=== PATIENT | female | born 1995 | race African-American/Black ===

== ENCOUNTER 2016-04-19 17:18 | Emergency (ER) | payer OTHER ==
[~2016-04-19] VITALS: Ht 170.2 cm; Wt 79.4 kg
[~2016-04-19 17:18] MED LIST: CYCL10TA2 PO; HYDR-971 PO; IBUP-1060 PO; IBUP200T43 PO; PHEN-318 PO; SULF1TAB24 PO
[2016-04-19 17:32] VITALS: BP 137/66
[2016-04-19 18:00] LABS: BILIRUBIN,URINE NEGATIVE (NEG); GLUCOSE,URINE NEGATIVE (NEG); NITRITE,URINE POSITIVE (NEG); PROTEIN,URINE NEGATIVE (NEG-TRACE); UROBILINOGEN,URINE 0.2 mg/dL (0.2 mg/dL)
[2016-04-19 18:12] LABS: BACTERIA,URINE MANY /HPF (0-FEW); RBC,URINE 0 /HPF (0-2); SQUAMOUS EPITHELIAL CELL,UR FEW /LPF
[2016-04-19] MEDS ORDERED: CEPH-264 PO (18:27)
[2016-04-19] MEDS ORDERED: CEPHALEXIN 250 MG CAPSULE PO STA (18:27)
--- NOTE | 2016-04-19 18:29 | PHYS DOC ---
Past Medical History Past Medical History: UTI Past Surgical History: No Surgical History Alcohol Use: None Drug Use: Marijuana Adult General Chief Complaint Chief Complaint: DIZZY/LIGHT HEADED HPI HPI Patient is a 20 year old female who presents with complaint of urinary frequency and lightheadedness. The patient states that her symptoms started yesterday but worsened today. Patient states that she was at work and stated that she started to feel lightheaded at work, causing her to have to sit down. Patient states that this helped with her symptoms. The patient is concerned however that she may have urinary tract infection. The patient states that she has had increased urinary frequency over the past 2 days which is similar to what she's had in the past. Patient states that she had a urinary tract infection 2 months ago and was treated with Bactrim. Patient has had associated pelvic cramping but denies any vaginal bleeding or discharge. Patient's last menstrual period was March 14, 2016. The patient rates her discomfort currently as 6 out of 10. Patient has not taken any medications to help with symptoms at this time. Review of Systems Review of Systems Constitutional: Denies fever or chills [] Eyes: Denies change in visual acuity, redness, or eye pain [] HENT: Denies nasal congestion or sore throat [] Respiratory: Denies cough or shortness of breath [] Cardiovascular: No additional information not addressed in HPI [] GI: Denies abdominal pain, nausea, vomiting, bloody stools or diarrhea [] : Urinary frequency, pelvic pain [] Musculoskeletal: Denies back pain or joint pain [] Integument: Denies rash or skin lesions [] Neurologic: Denies headache, focal weakness or sensory changes [] Current Medications Current Medications Current Medications Medications (Trade) Dose Ordered Sig/Kimberly Start Time Stop Time Status Last Admin Dose Admin Cephalexin HCl (Keflex) 500 mg 1X STAT 04/19/16 18:27 04/19/16 18:30 DC Allergies Allergies Allergies Coded Allergies Type Severity Reaction Last Updated Verified No Known Drug Allergies 03/31/15 No Physical Exam Physical Exam Constitutional: Alert, afebrile, no acute distress. [] HENT: Normocephalic, atraumatic, bilateral external ears normal, oropharynx moist, no oral exudates, nose normal. [] Eyes: PERRLA, EOMI, conjunctiva normal, no discharge. [] Neck: Normal range of motion, no tenderness, supple, no stridor. [] Cardiovascular:Heart rate regular rhythm, no murmur [] Lungs & Thorax: Bilateral breath sounds clear to auscultation [] Abdomen: Bowel sounds normal, soft, mild suprapubic tenderness to palpation, no guarding or rebound tenderness, no masses, no pulsatile masses. [] Skin: Warm, dry, no erythema, no rash. [] Back: No tenderness, no CVA tenderness. [] Extremities: No tenderness, no cyanosis, no clubbing, ROM intact, no edema. [] Neurologic: Alert and oriented X 3, normal motor function, normal sensory function, no focal deficits noted. [] Current Patient Data Vital Signs Vital Signs Date Time Temp Pulse Resp B/P Pulse Ox O2 Delivery O2 Flow Rate FiO2 04/19/16 17:32 98.2 92 18 137/66 97 Room Air 98.2 Lab Values Laboratory Tests Test 04/19/16 17:25 Urine Collection Type Unknown Urine Color Yellow Urine Clarity Clear Urine pH 7.0 Urine Specific [place] 1.020 Urine Protein Negativemg/dL (NEG-TRACE) Urine Glucose (UA) Negativemg/dL (NEG) Urine Ketones (Stick) Negativemg/dL (NEG) Urine Blood Negative (NEG) Urine Nitrite Positive (NEG) Urine Bilirubin Negative (NEG) Urine Urobilinogen Dipstick 0.2mg/dL (0.2 mg/dL) Urine Leukocyte Esterase Small (NEG) Urine RBC 0/HPF (0-2) Urine WBC 11-20/HPF (0-4) Urine Squamous Epithelial Cells Few/LPF Urine Bacteria Many/HPF (0-FEW) EKG EKG Not performed [] Radiology/Procedures Radiology/Procedures Not performed [] Course & Med Decision Making Course & Med Decision Making Pertinent Labs and Imaging studies reviewed. (See chart for details) Patient's UA showed evidence of urinary tract infection. Patient's urine test was negative. The patient was informed of the results of her testing told the patient that she would be started on Keflex for treatment of her urinary tract infection. I ordered her first dose in the emergency department and I also completed her discharge paperwork while she is in the emergency department. I was informed by the patient's nurse, Ariana Vance, that she went to the patient's room to give her her medication and found that the patient was gone. Apparently the patient had eloped from the emergency department before receiving her paperwork. An attempt was made to contact the patient at the phone number she provided, however this was found to be a wrong number. The patient did not receive her prescription for Keflex as a result of her elopement. Dragon Disclaimer Dragon Disclaimer This electronic medical record was generated, in whole or in part, using a voice recognition dictation system. Departure Departure Impression: Primary Impression: UTI (urinary tract infection) Disposition: HOME, SELF-CARE Condition: STABLE Referrals: NO PCP (PCP) Patient Instructions: Urinary Tract Infection Additional Instructions: Follow-up with her primary doctor in 3-5 days if symptoms are not improving. Return to emergency department for any worsening symptoms. Scripts Cephalexin (Keflex)500 Mg Capsule1 Cap PO TID #21 CAP Prov:RENAE KELSEY MD 04/19/16 Problem Qualifiers Primary Impression: UTI (urinary tract infection) Urinary tract infection type: site unspecified Hematuria presence: without hematuria Qualified Code: N39.0 - Urinary tract infection, site not specified RENAE KELSEY MD Apr 19, 2016 18:29
== END 2016-04-19 18:39 | disposition home or self-care (01) ==
LOC: ER 17:18
DX: N39.0 Urinary tract infection, site not specified (principal); F12.10 Cannabis abuse, uncomplicated
CPT/HCPCS: 81001; 81025; 87086; 99284

== ENCOUNTER 2016-05-27 18:14 | Emergency (ER) | payer OTHER ==
[~2016-05-27] VITALS: Ht 170.2 cm; Wt 86.2 kg
[~2016-05-27 18:14] MED LIST changes: +CEPH-264 PO
[2016-05-27 18:35] VITALS: BP 132/63
--- NOTE | 2016-05-27 18:55 | PHYS DOC ---
Past Medical History Past Medical History: UTI Past Surgical History: No Surgical History Alcohol Use: None Drug Use: Marijuana Adult General Chief Complaint Chief Complaint: ABDOMINAL PAIN IN HPI HPI Patient is a 21 year old female who presents with complaint of left-sided leg and abdominal pain. Patient states that she suffered a fall last night while trying to hang a bed frame. Patient states that she fell onto her left leg and on the left side of her abdomen. Patient is approximately 14 weeks at this time. Patient follows a [facility] for care. Patient states she has an appointment tomorrow with her SUPERVISOR FERTILIZER, however she stated that due to the pain she wanted to make sure breathing was okay with her baby. Patient states that the pain is mild and throbbing. Patient denies any associated vaginal bleeding or abnormal discharge. Patient also denies any urinary symptoms, lightheadedness, dizziness, or nausea currently. Patient rates her pain as 3 out of 10. Patient states that the pain worsens with movement and improves with rest. Patient has not taken any medications to help with her symptoms at this time. Patient states that her main concern is that her baby is okay. Review of Systems Review of Systems Constitutional: Denies fever or chills [] Eyes: Denies change in visual acuity, redness, or eye pain [] HENT: Denies nasal congestion or sore throat [] Respiratory: Denies cough or shortness of breath [] Cardiovascular: Denies chest pain or edema [] GI: Left-sided abdominal pain, denies nausea, vomiting, bloody stools or diarrhea [] : Denies dysuria or hematuria [] Musculoskeletal: Left thigh pain, Denies back pain or joint pain [] Integument: Denies rash or skin lesions [] Neurologic: Denies headache, focal weakness or sensory changes [] Allergies Allergies Allergies Coded Allergies Type Severity Reaction Last Updated Verified No Known Drug Allergies 03/31/15 No Physical Exam Physical Exam Constitutional: Well developed, well nourished, no acute distress, non-toxic appearance. [] HENT: Normocephalic, atraumatic, bilateral external ears normal, oropharynx moist, no oral exudates, nose normal. [] Eyes: PERRLA, EOMI, conjunctiva normal, no discharge. [] Neck: Normal range of motion, no tenderness, supple, no stridor. [] Cardiovascular:Heart rate regular rhythm, no murmur [] Lungs & Thorax: Bilateral breath sounds clear to auscultation [] Abdomen: Bowel sounds normal, soft, mild left lower quadrant tenderness to palpation, no guarding or rebound tenderness present,, no masses, no pulsatile masses. [] Skin: Warm, dry, no erythema, no rash. [] Back: No tenderness, no CVA tenderness. [] Extremities: Evolving ecchymosis along left lateral thigh, No tenderness, no cyanosis, no clubbing, ROM intact, no edema. [] Neurologic: Alert and oriented X 3, normal motor function, normal sensory function, no focal deficits noted. [] Current Patient Data Vital Signs Vital Signs Date Time Temp Pulse Resp B/P Pulse Ox O2 Delivery O2 Flow Rate FiO2 05/27/16 18:35 87 18 132/63 100 Room Air EKG EKG Not performed [] Radiology/Procedures Radiology/Procedures Limited transabdominal bedside ultrasound performed and interpreted by myself: Intrauterine , frequent movements, heart rate 148 bpm, no pelvic free fluid, no adnexal masses [] Course & Med Decision Making Course & Med Decision Making Pertinent Labs and Imaging studies reviewed. (See chart for details) Patient's ultrasound at bedside is unremarkable and shows a normal healthy baby. The patient states that she has an appointment tomorrow with her SUPERVISOR FERTILIZER and she has declined pelvic exam at today's visit but states that she will have this done tomorrow. Advised patient to use Tylenol as needed for pain and return to emergency department for any worsening symptoms. Patient voiced understanding and in agreement with treatment plan. Dragon Disclaimer Dragon Disclaimer This electronic medical record was generated, in whole or in part, using a voice recognition dictation system. Departure Departure Impression: Primary Impression: Abdominal pain during Additional Impressions: Fall Thigh contusion Disposition: HOME, SELF-CARE Condition: GOOD Referrals: NO PCP (PCP) Patient Instructions: Abdominal Pain During , Contusion Additional Instructions: Follow-up with your SUPERVISOR FERTILIZER tomorrow as scheduled. Your ultrasound today showed a normal, healthy, developing baby with a heart rate of the 148 bpm. Return to the emergency department for any worsening symptoms. Problem Qualifiers Primary Impression: Abdominal pain during Trimester: second trimester Qualified Code: O26.892 - Other specified related conditions, second trimester Additional Impressions: Fall Encounter type: initial encounter Qualified Code: W19.XXXA - Unspecified fall, initial encounter Thigh contusion Encounter type: initial encounter Laterality: left Qualified Code: S70.12XA - Contusion of left thigh, initial encounter RENAE KELSEY MD May 27, 2016 18:55
== END 2016-05-27 19:05 | disposition home or self-care (01) ==
LOC: ER 18:14
DX: O9A.212 Injury, poisoning and certain other consequences of external causes complicating pregnancy, second trimester (principal); S70.12XA Contusion of left thigh, initial encounter; O26.892 Other specified pregnancy related conditions, second trimester; R10.32 Left lower quadrant pain; O99.322 Drug use complicating pregnancy, second trimester; F12.10 Cannabis abuse, uncomplicated; Z87.440 Personal history of urinary (tract) infections; Z3A.14 14 weeks gestation of pregnancy
CPT/HCPCS: 99284

== ENCOUNTER 2016-06-14 22:52 | Emergency (ER) | payer SELFPAY ==
[~2016-06-14] VITALS: Ht 170.2 cm; Wt 86.2 kg
[2016-06-14 23:08] VITALS: BP 125/57
--- NOTE | 2016-06-14 23:23 | PHYS DOC ---
Past Medical History Past Medical History: No Pertinent History, UTI Past Surgical History: No Surgical History Alcohol Use: None Drug Use: Marijuana Adult General Chief Complaint Chief Complaint: HEADACHE HPI HPI Patient is a 21 year old female approx 19wks who presents with bifrontal headache, sneezing and clear rhinorrhea. Headache is gradual in onset , starting today. She has not taken any [id number] medicines as of now. She thinks these are allergic type symptoms. She left work for these symptoms, so she came here for work note. She denies fever or chills, nausea or vomiting, vision changes, diplopia, dizziness, tinnitus, ear pain, sore throat. Review of Systems Review of Systems Constitutional: Denies fever or chills [] Eyes: Denies change in visual acuity, redness, or eye pain [] HENT: Denies nasal congestion or sore throat [] Respiratory: Denies cough or shortness of breath [] Cardiovascular: No additional information not addressed in HPI [] GI: Denies abdominal pain, nausea, vomiting, bloody stools or diarrhea [] : Denies dysuria or hematuria [] Musculoskeletal: Denies back pain or joint pain [] Integument: Denies rash or skin lesions [] Neurologic: Denies focal weakness or sensory changes [] Endocrine: Denies polyuria or polydipsia [] Current Medications Current Medications Current Medications Medications (Trade) Dose Ordered Sig/Kimberly Start Time Stop Time Status Last Admin Dose Admin Acetaminophen (Tylenol) 500 mg 1X ONCE 06/14/16 23:30 06/14/16 23:31 DC Allergies Allergies Allergies Coded Allergies Type Severity Reaction Last Updated Verified No Known Drug Allergies 03/31/15 No Physical Exam Physical Exam Constitutional: Well developed, well nourished, no acute distress, non-toxic appearance. [] HENT: Normocephalic, atraumatic, bilateral external ears normal, oropharynx moist, no oral exudates, nose with bilateral hyperemia. [] Eyes: PERRLA, EOMI, conjunctiva normal, no discharge. [] Neck: Normal range of motion, no tenderness, supple, no stridor. [] Cardiovascular:Heart rate regular rhythm [] Lungs & Thorax: Bilateral breath sounds clear to auscultation [] Abdomen: Bowel sounds normal, soft, no tenderness. [] Skin: Warm, dry, no erythema, no rash. [] Back: Normal range of motion. [] Extremities: ROM intact, no edema. [] Neurologic: Alert and oriented X 3, normal motor function, normal sensory function, no focal deficits noted, cranial nerves II through XII intact. [] Psychologic: Affect normal, judgement normal, mood normal. [] Current Patient Data Vital Signs Vital Signs Date Time Temp Pulse Resp B/P (MAP) Pulse Ox O2 Delivery O2 Flow Rate FiO2 06/14/16 23:08 98.0 97 16 96 Room Air 98.0 Course & Med Decision Making Course & Med Decision Making Discussed symptomatic management for allergies and headaches. Return precautions given. She understands and agrees with plan. Dragon Disclaimer Dragon Disclaimer This electronic medical record was generated, in whole or in part, using a voice recognition dictation system. Departure Departure Impression: Primary Impression: Headache Disposition: 01 HOME, SELF-CARE Condition: STABLE Referrals: NO PCP (PCP) Patient Instructions: Headache and Allergies Additional Instructions: Take tylenol as needed for headache. Take benadryl as needed for allergy symptoms. Take flonase for sinus congestion. Follow up with your primary care doctor. Return for any concerns. Problem Qualifiers Primary Impression: Headache Headache type: unspecified Headache chronicity pattern: episodic headache Intractability: not intractable Qualified Codes: R51 - Headache Magdalene SCOTT MD June 14, 2016 23:23
[2016-06-14] MEDS ORDERED: ACETAMINOPHEN 500 MG TABLET PO ONE (23:30)
== END 2016-06-14 23:35 | disposition home or self-care (01) ==
LOC: ER 22:52
DX: O26.892 Other specified pregnancy related conditions, second trimester (principal); R51 Headache; F12.10 Cannabis abuse, uncomplicated; Z87.440 Personal history of urinary (tract) infections; Z3A.19 19 weeks gestation of pregnancy
CPT/HCPCS: 99282

== ENCOUNTER 2016-06-25 12:48 | Emergency (ER) | payer SELFPAY ==
[2016-06-25 13:30] VITALS: BP 125/57
--- NOTE | 2016-06-25 13:35 | PHYS DOC ---
Past Medical History Past Medical History: No Pertinent History, UTI Past Surgical History: No Surgical History Alcohol Use: None Drug Use: Marijuana Adult General Chief Complaint Chief Complaint: PAIN ON URINATION [facility] HPI Patient is a 21 year old female presents emergency department stating that she is 17 weeks with a last normal menstrual period 02/26/16. She'll states that she has been having lower back pain. She states that she normally gets urinary tract infections when she is . She states these are similar to the same symptoms she's had in the past. Patient denies any vaginal discharge. She denies any abdominal cramping she does however state that she has low back pain she is taken Tylenol for the discomfort. Review of Systems Review of Systems Constitutional: Denies fever or chills [] Eyes: Denies change in visual acuity, redness, or eye pain [] HENT: Denies nasal congestion or sore throat [] Respiratory: Denies cough or shortness of breath [] Cardiovascular: No additional information not addressed in HPI [] GI: Denies abdominal pain, nausea, vomiting, bloody stools or diarrhea [] : Denies dysuria or hematuria [] Musculoskeletal: low back pain denies joint pain [] Integument: Denies rash or skin lesions [] Neurologic: Denies headache, focal weakness or sensory changes [] Endocrine: Denies polyuria or polydipsia [] Allergies Allergies Allergies Coded Allergies Type Severity Reaction Last Updated Verified No Known Drug Allergies 03/31/15 No Physical Exam Physical Exam Constitutional: Well developed, well nourished, no acute distress, non-toxic appearance. [] HENT: Normocephalic, atraumatic, bilateral external ears normal, oropharynx moist, no oral exudates, nose normal. [] Eyes: PERRLA, EOMI, conjunctiva normal, no discharge. [] Neck: Normal range of motion, no tenderness, supple, no stridor. [] Cardiovascular:Heart rate regular rhythm, no murmur [] Lungs & Thorax: Bilateral breath sounds clear to auscultation [] Skin: Warm, dry, no erythema, no rash. [] Back: No tenderness, no CVA tenderness. [] Extremities: No tenderness, no cyanosis, no clubbing, ROM intact, no edema. [] Neurologic: Alert and oriented X 3, normal motor function, normal sensory function, no focal deficits noted. [] Psychologic: Affect normal, judgement normal, mood normal. [] Current Patient Data Lab Values Laboratory Tests Test 06/25/16 13:30 Urine Color Yellow Urine Clarity Clear Urine pH 7.5 Urine Specific [place] 1.015 Urine Protein Negative mg/dL (NEG-TRACE) Urine Glucose (UA) Negative mg/dL (NEG) Urine Ketones (Stick) Negative mg/dL (NEG) Urine Blood Negative (NEG) Urine Nitrite Positive (NEG) Urine Bilirubin Negative (NEG) Urine Urobilinogen Dipstick 0.2 mg/dL (0.2 mg/dL) Urine Leukocyte Esterase Trace (NEG) Urine RBC Occ /HPF (0-2) Urine WBC 5-10 /HPF (0-4) Urine Squamous Epithelial Cells Occ /LPF Urine Bacteria Many /HPF (0-FEW) Urine Mucus Slight /LPF EKG EKG [] Radiology/Procedures Radiology/Procedures [] Course & Med Decision Making Course & Med Decision Making Pertinent Labs and Imaging studies reviewed. (See chart for details) Urine was positive for urinary tract infection. Positive for leukocyte Estrace and positive for nitrates. Patient will be placed on Macrobid and she is . We'll recommend Tylenol for pain and discomfort. Plenty fluids such as water and cranberry juice. Avoid cranberry juice cocktail, carbonated beverages, citrus fruits of alcohol. Also recommended patient to stop smoking. Patient will be discharged home in stable condition signs symptoms to return back to emergency department as been provided. [] Dragon Disclaimer Dragon Disclaimer This electronic medical record was generated, in whole or in part, using a voice recognition dictation system. Departure Departure Impression: Primary Impression: Urinary tract infection during Disposition: 01 HOME, SELF-CARE Condition: STABLE Referrals: NO PCP (PCP) Patient Instructions: Urinary Tract Infection, [id number] Additional Instructions: You are being treated for urinary tract infection. Drink plenty of fluids such as water and cranberry juice. Avoid cranberry juice cocktail carbonate beverages, citrus fruits and alcohol seizure considered irritants to the bladder. Stop smoking. Medications as prescribed. Tylenol for pain and discomfort. Follow-up with your RETURNED [employer] INSPECTOR in the next 7-10 days. Return back to emergency prior signs symptoms of become worse. Scripts Nitrofurantoin Monohyd/M-Cryst (MACROBID 100 MG CAPSULE) 100 Mg Capsule 1 CAP PO BID, #14 CAP Prov: DOUGLAS OSEI APRN 06/25/16 DOUGLAS OSEI APRN June 25, 2016 13:35
[2016-06-25 13:49] LABS: BILIRUBIN,URINE NEGATIVE (NEG); GLUCOSE,URINE NEGATIVE (NEG); NITRITE,URINE POSITIVE (NEG); PH,URINE 7.5; PROTEIN,URINE NEGATIVE (NEG-TRACE); UROBILINOGEN,URINE 0.2 mg/dL (0.2 mg/dL)
[2016-06-25 14:03] LABS: RBC,URINE OCC /HPF (0-2)
[2016-06-25 14:04] LABS: BACTERIA,URINE MANY /HPF (0-FEW); SQUAMOUS EPITHELIAL CELL,UR OCC /LPF
[2016-06-25] MEDS ORDERED: NITR100C62 PO (14:08)
== END 2016-06-25 14:14 | disposition home or self-care (01) ==
LOC: ER 13:09
DX: Z33.1 Pregnant state, incidental (principal); N39.0 Urinary tract infection, site not specified; F12.10 Cannabis abuse, uncomplicated
CPT/HCPCS: 81001; 87086; 87186; 99284

== ENCOUNTER 2016-09-18 07:26 | Observation (INO) | payer OTHER ==
[~2016-09-18 07:26] MED LIST changes: +NITR100C62 PO
[2016-09-18 08:16] LABS: BILIRUBIN,URINE NEGATIVE (NEG); GLUCOSE,URINE NEGATIVE (NEG); NITRITE,URINE NEGATIVE (NEG); PH,URINE 6.5; PROTEIN,URINE NEGATIVE (NEG-TRACE); UROBILINOGEN,URINE 0.2 mg/dL (0.2 mg/dL)
[2016-09-18] MEDS ORDERED: IV RINGERS,LACTATED 1000ML 1,000 ML IV SCH (08:30)
== END 2016-09-18 08:55 | disposition home or self-care (01) ==
LOC: 3 SO LND 07:26
PROVIDERS: ADMIT Obstetrics & Gynecology; ATTEND Obstetrics & Gynecology
DX: O26.893 Other specified pregnancy related conditions, third trimester (principal); R10.2 Pelvic and perineal pain; Z3A.31 31 weeks gestation of pregnancy
CPT/HCPCS: 81003; G0378; G0379

== ENCOUNTER 2016-10-16 22:03 | Observation (INO) | payer OTHER ==
[2016-10-16 23:05] LABS: BILIRUBIN,URINE NEGATIVE (NEG); GLUCOSE,URINE 100 mg/dL (NEG); NITRITE,URINE NEGATIVE (NEG); PH,URINE 6.5; PROTEIN,URINE NEGATIVE (NEG-TRACE); UROBILINOGEN,URINE 0.2 mg/dL (0.2 mg/dL)
[2016-10-16 23:10] LABS: BARBITURATES NEG (NEG); BENZODIAZEPINES NEG (NEG); CANNABINOIDS NEG (NEG); COCAINE NEG (NEG); METHADONE NEG (NEG); OPIATES NEG (NEG); PHENCYCLIDINE NEG (NEG)
[2016-10-16 23:17] LABS: BACTERIA,URINE FEW /HPF (0-FEW); RBC,URINE OCC /HPF (0-2); SQUAMOUS EPITHELIAL CELL,UR OCC /LPF; TRICHOMONAS,URINE PRESENT
[2016-10-17] MEDS ORDERED: metroNIDAZOLE 500 MG TABLET PO ONE
[2016-10-17] MEDS ORDERED: ACETAMINOPHEN 500 MG TABLET PO ONE
== END 2016-10-17 02:15 | disposition home or self-care (01) ==
LOC: 3 SO LND 22:03
PROVIDERS: ADMIT Obstetrics & Gynecology; ATTEND Obstetrics & Gynecology
DX: O26.893 Other specified pregnancy related conditions, third trimester (principal); M54.9 Dorsalgia, unspecified; V89.9XXA Person injured in unspecified vehicle accident, initial encounter; Y93.89 Activity, other specified; Y92.89 Other specified places as the place of occurrence of the external cause; Y99.8 Other external cause status; Z3A.35 35 weeks gestation of pregnancy
CPT/HCPCS: 80307; 81001; G0378; G0379; G0479

== ENCOUNTER 2016-11-16 07:20 | Observation (INO) | payer OTHER | END 2016-11-16 11:13 | disposition home or self-care (01) | LOC: 3 SO LND 07:20 | PROVIDERS: ADMIT Obstetrics & Gynecology; ATTEND Obstetrics & Gynecology | DX: O62.9 Abnormality of forces of labor, unspecified (principal); Z3A.39 39 weeks gestation of pregnancy | CPT/HCPCS: G0378; G0379 ==

== ENCOUNTER 2016-11-20 22:23 | Inpatient (IN) | payer OTHER ==
[~2016-11-20] VITALS: Ht 167.6 cm; Wt 103.9 kg
[2016-11-20] MEDS ORDERED: IV RINGERS,LACTATED 1000ML 1,000 ML IV SCH (22:28)
[2016-11-20] MEDS ORDERED: ACETAMINOPHEN 325 MG TABLET. PO PRN (22:30)
[2016-11-20] MEDS ORDERED: ONDANSETRON PF 4 MG/2 ML VIAL. IV PRN (22:30)
[2016-11-20] MEDS ORDERED: LIDOCAINE 1% PF 30 ML VIAL. INJ PRN (22:30)
[2016-11-20] MEDS ORDERED: IBUPROFEN 800 MG TABLET. PO PRN (22:30)
[2016-11-20] MEDS ORDERED: OXYTOCIN 30 UNIT/500 ML PREMIX 500 ML IV PRN ×2 (22:30)
[2016-11-20] MEDS ORDERED: 0.9 % SODIUM CHLORIDE 10 ML DISP.SYRIN. IV PRN (22:30)
[2016-11-20] MEDS ORDERED: fentaNYL PF VIAL 100 MCG/2 ML VIAL IV PRN ×2 (22:30)
[2016-11-20] MEDS ORDERED: TERBUTALINE 1 MG/ML VIAL. SQ PRN (22:30)
[2016-11-20] MEDS ORDERED: PENICILLIN G K 5,000,000 UNIT in IV NORMAL SALINE 100ML 100 ML IV ONE (23:00)
[2016-11-20 23:12] LABS: BILIRUBIN,URINE NEGATIVE (NEG); GLUCOSE,URINE 100 mg/dL (NEG); NITRITE,URINE NEGATIVE (NEG); PROTEIN,URINE 30 mg/dL (NEG-TRACE); UROBILINOGEN,URINE 0.2 mg/dL (0.2 mg/dL)
--- NOTE | 2016-11-20 23:15 | PDOC1 ---
OB - History Hx of Present Care: Limited Care Ultrasounds: Normal mid trimester US Obstetrical Complications: None Medical Complications: None Past Family/Social History * Past Medical, Surgical, Family and Obstetric Histories reviewed from chart. Blood Type: O- Rubella: Immune RPR/VDRL: Negative GBS Status: Positive HBsAG: Negative OB - Chief Complaint & HPI Date of Admission: Date of Admission: Nov 20, 2016 at 22:23 Chief Complaint/History : 3 Para: 2 EGA: 39 Reason for admission: active labor Admission Nurse Assessment Rev: Yes Problems: OB - Admission Exam Physical Exam HEENT: Normal Heart: Regular Rate Lungs: Clear Abdomen: Gravid, Non tender, Soft Extremities: Edema Reflexes: Normal Cervical Dilatation: 8cm Effacement: 100% Station: -1 Membranes: Intact Heart Rate: Normal Accelerations: Accelerations Present Decelerations: No decelerations Contractions on Admission: < 5 Minutes Apart Intensity: Firm Text A: 39 wks IUP Active labor GBS positive P: Admit for labor management. Start Pen G prophylaxis. AIDA MONROE Jr, MD Nov 20, 2016 23:15
[2016-11-20 23:18] LABS: BARBITURATES NEG (NEG); BENZODIAZEPINES NEG (NEG); CANNABINOIDS NEG (NEG); COCAINE NEG (NEG); METHADONE NEG (NEG); OPIATES NEG (NEG); PHENCYCLIDINE NEG (NEG)
[2016-11-20 23:19] LABS: BASO # 0.1 x10^3/uL (0.0-0.2); BASO % 0 % (0-3); EOS % 1 % (0-3); HEMATOCRIT 35.9 % (36.0-47.0); HEMOGLOBIN 12.2 g/dL (12.0-15.5); LYMPH % 13 % (24-48); MEAN CORPUSCULAR HEMOGLOBIN 29 pg (25-35); MEAN CORPUSCULAR HGB CONC 34 g/dL (31-37); MEAN CORPUSCULAR VOLUME 85 fL (79-100); MONO % 7 % (0-9); NEUT % 78 % (31-73); PLATELET COUNT 146 x10^3/uL (140-400); RED CELL DISTRIBUTION WIDTH 14.3 % (11.5-14.5)
[2016-11-20 23:23] LABS: BACTERIA,URINE FEW /HPF (0-FEW); RBC,URINE 0 /HPF (0-2); SQUAMOUS EPITHELIAL CELL,UR FEW /LPF
--- NOTE | 2016-11-20 23:54 | PDOC ---
VAGINAL DELIVERY DATE DATE: 11/20/16 TIME: 23:53 : 3 Para: 3 EGA: 39 VAGINAL DELIVERY: VTX VACCUM ASSISTED: No PLACENTA: Spontaneous 8/9 SEX: Male WEIGHT Weight [ 3390 gm] Nuchal Cord: No Amniotic Fluid: Clear PAIN: Local EPISIOTOMY: No EXTENSION: No EBL 300 ml COMPLICATIONS none CONDITION pt. stable Signs of Intrauterine Infectio: None Shoulder Dystocia: No Problems: AIDA MONROE Jr, MD Nov 20, 2016 23:54
[2016-11-21] MEDS ORDERED: ACETAMINOPHEN 325 MG TABLET. PO PRN
[2016-11-21] MEDS ORDERED: 0.9 % SODIUM CHLORIDE 10 ML DISP.SYRIN. IV PRN
[2016-11-21] MEDS ORDERED: MMR per PROTOCOL. MC PRN
[2016-11-21] MEDS ORDERED: HYDROCORTISONE 1% TOPICAL OINTMENT 30GM TUBE. TP PRN
[2016-11-21] MEDS ORDERED: oxyCODONE/APAP 5/325 1 TAB TABLET PO PRN
[2016-11-21] MEDS ORDERED: DOCUSATE SODIUM 100 MG CAPSULE. PO PRN
[2016-11-21] MEDS ORDERED: OXYTOCIN 30 UNIT/500 ML PREMIX 500 ML IV PRN
[2016-11-21] MEDS ORDERED: SIMETHICONE 80 MG TAB.CHEW PO PRN
[2016-11-21] MEDS ORDERED: ZOLPIDEM 5 MG TABLET. PO PRN
[2016-11-21] MEDS ORDERED: diphenhydrAMINE HCL 25 MG CAPSULE PO PRN
[2016-11-21] MEDS ORDERED: IBUPROFEN 800 MG TABLET. PO PRN
[2016-11-21] MEDS ORDERED: PHENYLEPH/MINERAL OIL/PETROLAT RECTAL OINTMENT 28GM TUBE. RC PRN
[2016-11-21] MEDS ORDERED: BENZOCAINE 20% TOPICAL AEROSOL SPRAY 57GM CAN. TP PRN
[2016-11-21] MEDS ORDERED: MAGNESIUM HYDROXIDE 2,400 MG/30 ML ORAL.SUSP. PO PRN
[2016-11-21] MEDS ORDERED: MAG HYDROX/ALUMINUM HYD/SIMETH 30 ML ORAL.SUSP PO PRN
[2016-11-21 00:33] VITALS: BP 125/73
[2016-11-21] MEDS ORDERED: PENICILLIN G K 2,500,000 UNIT in IV NORMAL SALINE 50ML 50 ML IV SCH (03:00)
[2016-11-21 03:05] VITALS: BP 120/61
[2016-11-21 04:20] VITALS: BP 96/54
[2016-11-21 05:10] LABS: BASO # 0.2 x10^3/uL (0.0-0.2); BASO % 1 % (0-3); EOS % 1 % (0-3); HEMATOCRIT 32.9 % (36.0-47.0); HEMOGLOBIN 11.1 g/dL (12.0-15.5); LYMPH # 1.9 x10^3/uL (1.0-4.8); LYMPH % 11 % (24-48); MEAN CORPUSCULAR HEMOGLOBIN 29 pg (25-35); MEAN CORPUSCULAR HGB CONC 34 g/dL (31-37); MEAN CORPUSCULAR VOLUME 85 fL (79-100); MONO % 7 % (0-9); NEUT % 80 % (31-73); PLATELET COUNT 150 x10^3/uL (140-400); RED BLOOD COUNT 3.87 x10^6/uL (3.50-5.40); WHITE BLOOD COUNT 18.5 x10^3/uL (4.0-11.0)
[2016-11-21] MEDS ORDERED: FERROUS SULFATE 325 MG TABLET. PO SCH (08:00)
[2016-11-21 09:32] LABS: % EOS 1 % (0-5)
[2016-11-21 09:33] LABS: PLT ESTIMATE ADEQUATE (ADEQUATE)
[2016-11-21 11:00] VITALS: BP 112/66
--- NOTE | 2016-11-21 12:30 | PDOC ---
OB Progress Note Date of Service 11/21/16 Time of Evaluation 1230 Notes PT. feeling well. Pain controlled. Breast feeding. Lochia minimal. Lab Laboratory Tests Test 11/20/16 23:00 11/20/16 23:04 11/21/16 04:55 Urine Collection Type Unknown Urine Color Yellow Urine Clarity Clear Urine pH 7.0 Urine Specific [place] 1.025 Urine Protein 30 mg/dL (NEG-TRACE) Urine Glucose (UA) 100 mg/dL (NEG) Urine Ketones (Stick) Negative mg/dL (NEG) Urine Blood Trace (NEG) Urine Nitrite Negative (NEG) Urine Bilirubin Negative (NEG) Urine Urobilinogen Dipstick 0.2 mg/dL (0.2 mg/dL) Urine Leukocyte Esterase Moderate (NEG) Urine RBC 0 /HPF (0-2) Urine WBC 1-4 /HPF (0-4) Urine Squamous Epithelial Cells Few /LPF Urine Bacteria Few /HPF (0-FEW) Urine Mucus Slight /LPF Urine Opiates Screen Neg (NEG) Urine Methadone Screen Neg (NEG) Urine Barbiturates Neg (NEG) Urine Phencyclidine Screen Neg (NEG) Urine Amphetamine/Methamphetamine Neg (NEG) Urine Benzodiazepines Screen Neg (NEG) Urine Cocaine Screen Neg (NEG) Urine Cannabinoids Screen Neg (NEG) Urine Ethyl Alcohol Neg (NEG) White Blood Count 15.0 x10^3/uL (4.0-11.0) 18.5 x10^3/uL (4.0-11.0) Red Blood Count 4.20 x10^6/uL (3.50-5.40) 3.87 x10^6/uL (3.50-5.40) Hemoglobin 12.2 g/dL (12.0-15.5) 11.1 g/dL (12.0-15.5) Hematocrit 35.9 % (36.0-47.0) 32.9 % (36.0-47.0) Mean Corpuscular Volume 85 fL (79-100) 85 fL (79-100) Mean Corpuscular Hemoglobin 29 pg (25-35) 29 pg (25-35) Mean Corpuscular Hemoglobin Concent 34 g/dL (31-37) 34 g/dL (31-37) Red Cell Distribution Width 14.3 % (11.5-14.5) 14.0 % (11.5-14.5) Platelet Count 146 x10^3/uL (140-400) 150 x10^3/uL (140-400) Neutrophils (%) (Auto) 78 % (31-73) 80 % (31-73) Lymphocytes (%) (Auto) 13 % (24-48) 11 % (24-48) Monocytes (%) (Auto) 7 % (0-9) 7 % (0-9) Eosinophils (%) (Auto) 1 % (0-3) 1 % (0-3) Basophils (%) (Auto) 0 % (0-3) 1 % (0-3) Neutrophils # (Auto) 11.7 x10^3uL (1.8-7.7) 14.8 x10^3uL (1.8-7.7) Lymphocytes # (Auto) 2.0 x10^3/uL (1.0-4.8) 1.9 x10^3/uL (1.0-4.8) Monocytes # (Auto) 1.1 x10^3/uL (0.0-1.1) 1.3 x10^3/uL (0.0-1.1) Eosinophils # (Auto) 0.2 x10^3/uL (0.0-0.7) 0.2 x10^3/uL (0.0-0.7) Basophils # (Auto) 0.1 x10^3/uL (0.0-0.2) 0.2 x10^3/uL (0.0-0.2) Segmented Neutrophils % 89 % (35-66) Lymphocytes % 8 % (24-48) Monocytes % 2 % (0-10) Eosinophils % 1 % (0-5) Platelet Estimate Adequate (ADEQUATE) Laboratory Tests Test 11/20/16 23:00 11/20/16 23:04 11/21/16 04:55 Urine Collection Type Unknown Urine Color Yellow Urine Clarity Clear Urine pH 7.0 Urine Specific [place] 1.025 Urine Protein 30 mg/dL (NEG-TRACE) Urine Glucose (UA) 100 mg/dL (NEG) Urine Ketones (Stick) Negative mg/dL (NEG) Urine Blood Trace (NEG) Urine Nitrite Negative (NEG) Urine Bilirubin Negative (NEG) Urine Urobilinogen Dipstick 0.2 mg/dL (0.2 mg/dL) Urine Leukocyte Esterase Moderate (NEG) Urine RBC 0 /HPF (0-2) Urine WBC 1-4 /HPF (0-4) Urine Squamous Epithelial Cells Few /LPF Urine Bacteria Few /HPF (0-FEW) Urine Mucus Slight /LPF Urine Opiates Screen Neg (NEG) Urine Methadone Screen Neg (NEG) Urine Barbiturates Neg (NEG) Urine Phencyclidine Screen Neg (NEG) Urine Amphetamine/Methamphetamine Neg (NEG) Urine Benzodiazepines Screen Neg (NEG) Urine Cocaine Screen Neg (NEG) Urine Cannabinoids Screen Neg (NEG) Urine Ethyl Alcohol Neg (NEG) White Blood Count 15.0 x10^3/uL (4.0-11.0) 18.5 x10^3/uL (4.0-11.0) Red Blood Count 4.20 x10^6/uL (3.50-5.40) 3.87 x10^6/uL (3.50-5.40) Hemoglobin 12.2 g/dL (12.0-15.5) 11.1 g/dL (12.0-15.5) Hematocrit 35.9 % (36.0-47.0) 32.9 % (36.0-47.0) Mean Corpuscular Volume 85 fL (79-100) 85 fL (79-100) Mean Corpuscular Hemoglobin 29 pg (25-35) 29 pg (25-35) Mean Corpuscular Hemoglobin Concent 34 g/dL (31-37) 34 g/dL (31-37) Red Cell Distribution Width 14.3 % (11.5-14.5) 14.0 % (11.5-14.5) Platelet Count 146 x10^3/uL (140-400) 150 x10^3/uL (140-400) Neutrophils (%) (Auto) 78 % (31-73) 80 % (31-73) Lymphocytes (%) (Auto) 13 % (24-48) 11 % (24-48) Monocytes (%) (Auto) 7 % (0-9) 7 % (0-9) Eosinophils (%) (Auto) 1 % (0-3) 1 % (0-3) Basophils (%) (Auto) 0 % (0-3) 1 % (0-3) Neutrophils # (Auto) 11.7 x10^3uL (1.8-7.7) 14.8 x10^3uL (1.8-7.7) Lymphocytes # (Auto) 2.0 x10^3/uL (1.0-4.8) 1.9 x10^3/uL (1.0-4.8) Monocytes # (Auto) 1.1 x10^3/uL (0.0-1.1) 1.3 x10^3/uL (0.0-1.1) Eosinophils # (Auto) 0.2 x10^3/uL (0.0-0.7) 0.2 x10^3/uL (0.0-0.7) Basophils # (Auto) 0.1 x10^3/uL (0.0-0.2) 0.2 x10^3/uL (0.0-0.2) Segmented Neutrophils % 89 % (35-66) Lymphocytes % 8 % (24-48) Monocytes % 2 % (0-10) Eosinophils % 1 % (0-5) Platelet Estimate Adequate (ADEQUATE) Medications Current Medications Sodium Chloride (Normal Saline Flush) 3 ml QSHIFT PRN IV AFTER MEDS AND BLOOD DRAWS; Start 11/20/16 at 22:30; Stop 11/21/16 at 07:47; Status DC Ringer's Solution 1,000 ml @ 125 mls/hr Q8H IV Last administered on 23:17; Start 11/20/16 at 22:28; Stop 11/21/16 at 07:47; Status DC Fentanyl Citrate (Fentanyl 2ml Vial) 50 mcg PRN Q30MIN PRN IV Mild to moderate pain; Start 11/20/16 at 22:30; Stop 11/21/16 at 07:47; Status DC Fentanyl Citrate (Fentanyl 2ml Vial) 100 mcg PRN Q30MIN PRN IV Severe pain Last administered on 11/20/16 23:17; Start 11/20/16 at 22:30; Stop 11/21/16 at 07:47; Status DC Acetaminophen (Tylenol) 650 mg PRN Q6HRS PRN PO MILD PAIN / TEMP; Start at 22:30 Ondansetron HCl (Zofran) 4 mg PRN Q4HRS PRN IV NAUSEA/VOMITING; Start at 22:30; Stop 11/21/16 at 07:47; Status DC Terbutaline Sulfate (Brethine) 0.25 mg 1X PRN PRN SQ SEE COMMENTS; Start 11/20 at 22:30; Stop 11/21/16 at 07:47; Status DC Lidocaine HCl 30 ml 1X PRN PRN INJ SEE COMMENTS; Start 11/20/16 at 22:30; Stop 11/21/16 at 07:47; Status DC Oxytocin/Sodium Chloride 500 ml @ 0 mls/hr CONT PRN IV SEE I/O RECORD; Start 11/20/16 at 22:30; Stop 11/21/16 at 04:01; Status DC Oxytocin/Sodium Chloride 500 ml @ 0 mls/hr CONT PRN PRN IV Post delivery bleeding Last administered on 11/20/16 23:18; Start 11/20/16 at 22:30; Stop 11/21/16 at 04:01; Status DC Ibuprofen (Motrin) 800 mg PRN Q6HRS PRN PO PAIN Last administered on 02:21; Start 11/20/16 at 22:30 Penicillin G Potassium [id number] unit/Sodium Chloride 100 ml @ 100 mls/hr 1X ONCE IV Last administered on 11/20/16 23:18; Start 11/20/16 at 23:00; Stop 11/21/16 at 07:47; Status DC Penicillin G Potassium [id number] unit/Sodium Chloride 50 ml @ 100 mls/hr Q4H IV ; Start 11/21/16 at 03:00; Stop 11/21/16 at 04:02; Status DC Sodium Chloride (Normal Saline Flush) 10 ml QSHIFT PRN IV AFTER MEDS AND BLOOD DRAWS; Start 11/21/16 at 00:00; Stop 11/21/16 at 07:47; Status DC Oxytocin/Sodium Chloride 500 ml @ 62.5 mls/hr CONT PRN IV SEE I/O RECORD; Start 11/21/16 at 00:00; Stop 11/21/16 at 07:47; Status DC Acetaminophen (Tylenol) 650 mg PRN Q6HRS PRN PO MILD PAIN / TEMP; Start at 00:00 Ibuprofen (Motrin) 800 mg PRN Q8HRS PRN PO INFLAMMATION/PAIN PREVENTION; Start 11/21/16 at 00:00 Docusate Sodium (Colace) 100 mg PRN BID PRN PO CONSTIPATION; Start 11/21/16 at 00:00 Magnesium Hydroxide (Milk Of Magnesia) 2,400 mg PRN DAILY PRN PO CONSTIPATION; Start 11/21/16 at 00:00 Al Hydroxide/Mg Hydroxide (Mylanta Plus Xs) 30 ml PRN Q4HRS PRN PO HEARTBURN / GAS; Start 11/21/16 at 00:00 Simethicone (Gas-X) 80 mg PRN AFTMEALHC PRN PO GAS / BLOATING; Start 11/21/16 at 00:00 Diphenhydramine HCl (Benadryl) 25 mg PRN Q6HRS PRN PO ITCHING; Start 11/21/16 at 00:00 Benzocaine (Americaine) 1 spray PRN QID PRN TP TOPICAL PAIN Last administered on 11/21/16t 02:21; Start 11/21/16 at 00:00 Phenyleph/Shark Oil/Min Oil/Petrol (Preparation H) 1 marcella PRN QID PRN RC RECTAL PAIN; Start 11/21/16 at 00:00 Hydrocortisone (Cortaid) 1 marcella PRN QID PRN TP PERINEAL PAIN; Start 11/21/16 at 00:00 Ferrous Sulfate (Feosol) 325 mg BIDWMEALS PO ; Start 11/21/16 at 08:00; Stop 11/21/16 at 08:00; Status DC Zolpidem Tartrate (Ambien) 5 mg PRN QHS PRN PO INSOMNIA, MAY REPEAT X1; Start 11/21/16 at 00:00 Info (Do NOT chart on this placeholder) 1 ea 1X PRN PRN MC SEE COMMENTS; Start 11/21/16 at 00:00; Stop 11/21/16 at 07:47; Status DC Info (Do NOT chart on this placeholder) 1 ea 1X PRN PRN MC SEE COMMENTS; Start 11/21/16 at 00:00; Stop 11/21/16 at 07:47; Status DC Oxycodone/ Acetaminophen (Percocet 5/325) 2 tab PRN Q4HRS PRN PO MODERATE PAIN , SEVERE PAIN; Start 11/21/16 at 00:00 Active Scripts Active Macrobid 100 Mg Capsule (Nitrofurantoin Monohyd/M-Cryst) 100 Mg Capsule 1 Cap PO BID Keflex (Cephalexin) 500 Mg Capsule 1 Cap PO TID [place] 5-325 Tablet (Acetaminophen/Hydrocodone Bitart) 1 Each Tablet 1 Tab PO PRN Q6HRS PRN Pyridium (Phenazopyridine Hcl) 200 Mg Tablet 200 Mg PO TID Bactrim Ds Tablet (Sulfamethoxazole/Trimethoprim) 1 Each Tablet 1 Each PO BID Cyclobenzaprine Hcl 10 Mg Tablet 10 Mg PO TID PRN Motrin Ib (Ibuprofen) 200 Mg Tablet 800 Mg PO Q6H PRN Ibuprofen 800 Mg Tablet 800 Mg PO PRN Q8HRS PRN Exam Abd: soft, non tender, fundus firm Assessment PPD#1 s/p Plan of Care: Continue current Tx, AIDA Triana Jr, MD Nov 21, 2016 12:30
[2016-11-21 15:00] VITALS: BP 126/74
[2016-11-21 23:04] VITALS: BP 114/75
[2016-11-22 00:10] LABS: RPR REFLEX Non Reactive (Non Reactive)
[2016-11-22 06:05] VITALS: BP 122/84
[2016-11-22 11:20] VITALS: BP 124/74
[2016-11-22 17:00] VITALS: BP 126/74
--- NOTE | 2016-11-22 17:28 | PDOC ---
OB Progress Note Date of Service 11/22/16 Time of Evaluation 1725 Notes Pt. feeling well. No complaints. Lab Laboratory Tests Test 11/20/16 23:00 11/20/16 23:04 11/21/16 04:55 Urine Collection Type Unknown Urine Color Yellow Urine Clarity Clear Urine pH 7.0 Urine Specific [place] 1.025 Urine Protein 30 mg/dL (NEG-TRACE) Urine Glucose (UA) 100 mg/dL (NEG) Urine Ketones (Stick) Negative mg/dL (NEG) Urine Blood Trace (NEG) Urine Nitrite Negative (NEG) Urine Bilirubin Negative (NEG) Urine Urobilinogen Dipstick 0.2 mg/dL (0.2 mg/dL) Urine Leukocyte Esterase Moderate (NEG) Urine RBC 0 /HPF (0-2) Urine WBC 1-4 /HPF (0-4) Urine Squamous Epithelial Cells Few /LPF Urine Bacteria Few /HPF (0-FEW) Urine Mucus Slight /LPF Urine Opiates Screen Neg (NEG) Urine Methadone Screen Neg (NEG) Urine Barbiturates Neg (NEG) Urine Phencyclidine Screen Neg (NEG) Urine Amphetamine/Methamphetamine Neg (NEG) Urine Benzodiazepines Screen Neg (NEG) Urine Cocaine Screen Neg (NEG) Urine Cannabinoids Screen Neg (NEG) Urine Ethyl Alcohol Neg (NEG) White Blood Count 15.0 x10^3/uL (4.0-11.0) 18.5 x10^3/uL (4.0-11.0) Red Blood Count 4.20 x10^6/uL (3.50-5.40) 3.87 x10^6/uL (3.50-5.40) Hemoglobin 12.2 g/dL (12.0-15.5) 11.1 g/dL (12.0-15.5) Hematocrit 35.9 % (36.0-47.0) 32.9 % (36.0-47.0) Mean Corpuscular Volume 85 fL (79-100) 85 fL (79-100) Mean Corpuscular Hemoglobin 29 pg (25-35) 29 pg (25-35) Mean Corpuscular Hemoglobin Concent 34 g/dL (31-37) 34 g/dL (31-37) Red Cell Distribution Width 14.3 % (11.5-14.5) 14.0 % (11.5-14.5) Platelet Count 146 x10^3/uL (140-400) 150 x10^3/uL (140-400) Neutrophils (%) (Auto) 78 % (31-73) 80 % (31-73) Lymphocytes (%) (Auto) 13 % (24-48) 11 % (24-48) Monocytes (%) (Auto) 7 % (0-9) 7 % (0-9) Eosinophils (%) (Auto) 1 % (0-3) 1 % (0-3) Basophils (%) (Auto) 0 % (0-3) 1 % (0-3) Neutrophils # (Auto) 11.7 x10^3uL (1.8-7.7) 14.8 x10^3uL (1.8-7.7) Lymphocytes # (Auto) 2.0 x10^3/uL (1.0-4.8) 1.9 x10^3/uL (1.0-4.8) Monocytes # (Auto) 1.1 x10^3/uL (0.0-1.1) 1.3 x10^3/uL (0.0-1.1) Eosinophils # (Auto) 0.2 x10^3/uL (0.0-0.7) 0.2 x10^3/uL (0.0-0.7) Basophils # (Auto) 0.1 x10^3/uL (0.0-0.2) 0.2 x10^3/uL (0.0-0.2) RPR Titer Additional Testing Non reactive (Non Reactive) Segmented Neutrophils % 89 % (35-66) Lymphocytes % 8 % (24-48) Monocytes % 2 % (0-10) Eosinophils % 1 % (0-5) Platelet Estimate Adequate (ADEQUATE) Medications Current Medications Sodium Chloride (Normal Saline Flush) 3 ml QSHIFT PRN IV AFTER MEDS AND BLOOD DRAWS; Start 11/20/16 at 22:30; Stop 11/21/16 at 07:47; Status DC Ringer's Solution 1,000 ml @ 125 mls/hr Q8H IV Last administered on t 23:17; Start 11/20/16 at 22:28; Stop 11/21/16 at 07:47; Status DC Fentanyl Citrate (Fentanyl 2ml Vial) 50 mcg PRN Q30MIN PRN IV Mild to moderate pain; Start 11/20/16 at 22:30; Stop 11/21/16 at 07:47; Status DC Fentanyl Citrate (Fentanyl 2ml Vial) 100 mcg PRN Q30MIN PRN IV Severe pain Last administered on 11/20/16 23:17; Start 11/20/16 at 22:30; Stop 11/21/16 at 07:47; Status DC Acetaminophen (Tylenol) 650 mg PRN Q6HRS PRN PO MILD PAIN / TEMP; Start at 22:30 Ondansetron HCl (Zofran) 4 mg PRN Q4HRS PRN IV NAUSEA/VOMITING; Start at 22:30; Stop 11/21/16 at 07:47; Status DC Terbutaline Sulfate (Brethine) 0.25 mg 1X PRN PRN SQ SEE COMMENTS; Start 11/20 at 22:30; Stop 11/21/16 at 07:47; Status DC Lidocaine HCl 30 ml 1X PRN PRN INJ SEE COMMENTS; Start 11/20/16 at 22:30; Stop 11/21/16 at 07:47; Status DC Oxytocin/Sodium Chloride 500 ml @ 0 mls/hr CONT PRN IV SEE I/O RECORD; Start 11/20/16 at 22:30; Stop 11/21/16 at 04:01; Status DC Oxytocin/Sodium Chloride 500 ml @ 0 mls/hr CONT PRN PRN IV Post delivery bleeding Last administered on 11/20/16 23:18; Start 11/20/16 at 22:30; Stop 11/21/16 at 04:01; Status DC Ibuprofen (Motrin) 800 mg PRN Q6HRS PRN PO PAIN Last administered on 02:21; Start 11/20/16 at 22:30 Penicillin G Potassium [id number] unit/Sodium Chloride 100 ml @ 100 mls/hr 1X ONCE IV Last administered on 11/20/16 23:18; Start 11/20/16 at 23:00; Stop 11/21/16 at 07:47; Status DC Penicillin G Potassium [id number] unit/Sodium Chloride 50 ml @ 100 mls/hr Q4H IV ; Start 11/21/16 at 03:00; Stop 11/21/16 at 04:02; Status DC Sodium Chloride (Normal Saline Flush) 10 ml QSHIFT PRN IV AFTER MEDS AND BLOOD DRAWS; Start 11/21/16 at 00:00; Stop 11/21/16 at 07:47; Status DC Oxytocin/Sodium Chloride 500 ml @ 62.5 mls/hr CONT PRN IV SEE I/O RECORD; Start 11/21/16 at 00:00; Stop 11/21/16 at 07:47; Status DC Acetaminophen (Tylenol) 650 mg PRN Q6HRS PRN PO MILD PAIN / TEMP; Start at 00:00 Ibuprofen (Motrin) 800 mg PRN Q8HRS PRN PO INFLAMMATION/PAIN PREVENTION; Start 11/21/16 at 00:00 Docusate Sodium (Colace) 100 mg PRN BID PRN PO CONSTIPATION; Start 11/21/16 at 00:00 Magnesium Hydroxide (Milk Of Magnesia) 2,400 mg PRN DAILY PRN PO CONSTIPATION; Start 11/21/16 at 00:00 Al Hydroxide/Mg Hydroxide (Mylanta Plus Xs) 30 ml PRN Q4HRS PRN PO HEARTBURN / GAS; Start 11/21/16 at 00:00 Simethicone (Gas-X) 80 mg PRN AFTMEALHC PRN PO GAS / BLOATING; Start 11/21/16 at 00:00 Diphenhydramine HCl (Benadryl) 25 mg PRN Q6HRS PRN PO ITCHING; Start 11/21/16 at 00:00 Benzocaine (Americaine) 1 spray PRN QID PRN TP TOPICAL PAIN Last administered on 11/21/16t 02:21; Start 11/21/16 at 00:00 Phenyleph/Shark Oil/Min Oil/Petrol (Preparation H) 1 marcella PRN QID PRN RC RECTAL PAIN; Start 11/21/16 at 00:00 Hydrocortisone (Cortaid) 1 marcella PRN QID PRN TP PERINEAL PAIN; Start 11/21/16 at 00:00 Ferrous Sulfate (Feosol) 325 mg BIDWMEALS PO ; Start 11/21/16 at 08:00; Stop 11/21/16 at 08:00; Status DC Zolpidem Tartrate (Ambien) 5 mg PRN QHS PRN PO INSOMNIA, MAY REPEAT X1; Start 11/21/16 at 00:00 Info (Do NOT chart on this placeholder) 1 ea 1X PRN PRN MC SEE COMMENTS; Start 11/21/16 at 00:00; Stop 11/21/16 at 07:47; Status DC Info (Do NOT chart on this placeholder) 1 ea 1X PRN PRN MC SEE COMMENTS; Start 11/21/16 at 00:00; Stop 11/21/16 at 07:47; Status DC Oxycodone/ Acetaminophen (Percocet 5/325) 2 tab PRN Q4HRS PRN PO MODERATE PAIN , SEVERE PAIN; Start 11/21/16 at 00:00 Active Scripts Active Macrobid 100 Mg Capsule (Nitrofurantoin Monohyd/M-Cryst) 100 Mg Capsule 1 Cap PO BID Keflex (Cephalexin) 500 Mg Capsule 1 Cap PO TID [place] 5-325 Tablet (Acetaminophen/Hydrocodone Bitart) 1 Each Tablet 1 Tab PO PRN Q6HRS PRN Pyridium (Phenazopyridine Hcl) 200 Mg Tablet 200 Mg PO TID Bactrim Ds Tablet (Sulfamethoxazole/Trimethoprim) 1 Each Tablet 1 Each PO BID Cyclobenzaprine Hcl 10 Mg Tablet 10 Mg PO TID PRN Motrin Ib (Ibuprofen) 200 Mg Tablet 800 Mg PO Q6H PRN Ibuprofen 800 Mg Tablet 800 Mg PO PRN Q8HRS PRN Assessment PPD#2 s/p Plan of Care: See new orders (D/c home.) AIDA MONROE Jr, MD Nov 22, 2016 17:28
--- NOTE | 2016-11-22 17:29 | DISCH ---
DISCHARGE INSTRUCTIONS Condition on Discharge Condition on Discharge: Stable Activity After Discharge Activity Instructions for Disc: Activity as tolerated Lifting Instructions after Dis: No heavy lifting Driving Instructions after Dis: Do not drive today Diet after Discharge Diet after Discharge: Regular Contacting the [facility] after DC Call your doctor for: Concerns you may have Follow-Up Follow up with: Dr. Hernandez in 6 weeks. AIDA HERNANDEZ Jr, MD Nov 22, 2016 17:29
[2016-11-22] MEDS ORDERED: IBUP-1060 PO (17:30)
== END 2016-11-22 17:35 | disposition home or self-care (01) | DRG 775 ==
LOC: 3 SO LND 22:23 → OBSVTOIN 22:23 → 3 NORTH 11-21 03:05
PROVIDERS: ADMIT Obstetrics & Gynecology; ATTEND Obstetrics & Gynecology
PROC: 10E0XZZ Delivery of Products of Conception, External Approach (ICD-10-PCS; principal; 2016-11-20)
PROC: 10907ZC Drainage of Amniotic Fluid, Therapeutic from Products of Conception, Via Natural or Artificial Opening (ICD-10-PCS; 2016-11-20)
DX: O99.824 Streptococcus B carrier state complicating childbirth (principal); Z37.0 Single live birth; Z3A.39 39 weeks gestation of pregnancy
CPT/HCPCS: 36415; 80307; 81001; 85007; 85025; 86593; 87086; G0378; J2540; J2590; J3010; J7120; G0479

== ENCOUNTER 2018-05-18 18:19 | Emergency (ER) | payer OTHER ==
[~2018-05-18] VITALS: Ht 170.2 cm; Wt 91.6 kg
[~2018-05-18 18:19] MED LIST changes: +HYDR-3164 PO; -HYDR-971 PO; -IBUP200T43 PO; +IBUP200T44 PO
[2018-05-18 18:25] VITALS: BP 140/70
[2018-05-18 18:36] LABS: BILIRUBIN,URINE NEGATIVE (NEG); CLARITY,URINE CLOUDY; COLOR,URINE YELLOW; NITRITE,URINE NEGATIVE (NEG); PROTEIN,URINE 30 mg/dL (NEG-TRACE)
[2018-05-18 18:44] LABS: BACTERIA,URINE FEW /HPF (0-FEW); SQUAMOUS EPITHELIAL CELL,UR MANY /LPF; WBC,URINE 20-40 /HPF (0-4)
[2018-05-18] MEDS ORDERED: metroNIDAZOLE 500 MG TABLET PO ONE (18:45)
[2018-05-18] MEDS ORDERED: AZITHROMYCIN 250 MG TABLET. PO ONE (18:45)
[2018-05-18] MEDS ORDERED: cefTRIAXone IM 250 MG VIAL IM ONE (18:45)
[2018-05-18] MEDS ORDERED: METR500T PO (19:09)
[2018-05-18] MEDS ORDERED: CEPH500T PO (19:09)
--- NOTE | 2018-05-18 19:09 | PHYS DOC ---
Past Medical History Past Medical History: No Pertinent History, UTI (MONICA FLEMING APRN) Past Surgical History: No Surgical History (MONICA FLEMING APRN) Alcohol Use: Occasionally Drug Use: None (MONICA FLEMING APRN) Adult General Chief Complaint Chief Complaint: ABDOMINAL PAIN HPI HPI Patient is a 22 year old female in the medical history who presents today complaining of vaginal discharge, dysuria, symptoms began 2 days ago, would like to be tested and treated for STDs. Patient is also requesting we check him Mirena. (MONICA FLEMING APRN) Review of Systems Review of Systems Constitutional: Denies fever or chills [] Eyes: Denies change in visual acuity, redness, or eye pain [] HENT: Denies nasal congestion or sore throat [] Respiratory: Denies cough or shortness of breath [] Cardiovascular: No additional information not addressed in HPI [] GI: Reports vaginal discharge. Denies abdominal pain, nausea, vomiting, bloody stools or diarrhea [] : Reports dysuria, denies hematuria [] Musculoskeletal: Denies back pain or joint pain [] Integument: Denies rash or skin lesions [] Neurologic: Denies headache, focal weakness or sensory changes [] All other systems were reviewed and found to be within normal limits, except as documented in this note. (MONICA FLEMING APRN) Current Medications Current Medications Current Medications Medications (Trade) Dose Ordered Sig/Kimberly Start Time Stop Time Status Last Admin Dose Admin Azithromycin (Zithromax) 1,000 mg 1X ONCE 05/18/18 18:45 05/18/18 18:46 DC 05/18/18 18:52 1,000 MG Ceftriaxone Sodium (Rocephin Im) 250 mg 1X ONCE 05/18/18 18:45 05/18/18 18:46 DC 05/18/18 18:53 250 MG Metronidazole (Flagyl) 2,000 mg 1X ONCE 05/18/18 18:45 05/18/18 18:46 DC 05/18/18 18:51 2,000 MG (JUDI JAIN DO) Allergies Allergies Allergies Coded Allergies Type Severity Reaction Last Updated Verified No Known Drug Allergies 03/31/15 No (JUDI JAIN DO) Physical Exam Physical Exam Constitutional: Well developed, well nourished, no acute distress, non-toxic appearance. [] HENT: Normocephalic, atraumatic, bilateral external ears normal, oropharynx moist, no oral exudates, nose normal. [] Eyes: PERRLA, EOMI, conjunctiva normal, no discharge. [] Neck: Normal range of motion, no tenderness, supple, no stridor. [] Cardiovascular:Heart rate regular rhythm, no murmur [] Lungs & Thorax: Bilateral breath sounds clear to auscultation [] Abdomen: Bowel sounds normal, soft, no tenderness, no masses, no pulsatile masses. [] Pelvic exam External pelvic appears normal, cervix visualized, IUD strings noted in the cervical os. No adnexal tenderness, no CMT, small amount of brownish discharge in the vaginal vault. Discharge in the vaginal vault. Skin: Warm, dry, no erythema, no rash. [] Back: No tenderness, no CVA tenderness. [] Extremities: No tenderness, no cyanosis, no clubbing, ROM intact, no edema. [] Neurologic: Alert and oriented X 3, normal motor function, normal sensory function, no focal deficits noted. [] Psychologic: Affect normal, judgement normal, mood normal. [] (MONICA FLEMING APRN) Current Patient Data Vital Signs Vital Signs Date Time Temp Pulse Resp B/P (MAP) Pulse Ox O2 Delivery O2 Flow Rate FiO2 05/18/18 18:25 99.0 96 17 140/70 (93) 98 Room Air 99.0 (JAIN,JUDI R DO) Lab Values Laboratory Tests Test 05/18/18 18:25 05/18/18 18:30 05/18/18 18:38 Urine Collection Type Unknown Urine Color Yellow Urine Clarity Cloudy Urine pH 7.0 Urine Specific [place] 1.025 Urine Protein 30 mg/dL (NEG-TRACE) Urine Glucose (UA) Negative mg/dL (NEG) Urine Ketones (Stick) Negative mg/dL (NEG) Urine Blood Moderate (NEG) Urine Nitrite Negative (NEG) Urine Bilirubin Negative (NEG) Urine Urobilinogen Dipstick 1.0 mg/dL (0.2 mg/dL) Urine Leukocyte Esterase Moderate (NEG) Urine RBC 3-5 /HPF (0-2) Urine WBC 20-40 /HPF (0-4) Urine Squamous Epithelial Cells Many /LPF Urine Bacteria Few /HPF (0-FEW) Urine Mucus Mod /LPF POC Urine HCG, Qualitative Hcg negative (Negative) Chlamydia DNA Probe Positive (Negative) A Neisseria gonorrhoeae DNA Probe Positive (Negative) A Microbiology 05/18/18 Wet Prep - Final, Complete 05/18/18 Urine Culture - Final, Complete 05/18/18 Urine Culture Result 1 (LIOR) - Final, Complete (JUDI JAIN DO) EKG EKG [] (MONICA FLEMING APRN) Radiology/Procedures Radiology/Procedures [] (MONICA FLEMING APRN) Course & Med Decision Making Course & Med Decision Making Pertinent Labs and Imaging studies reviewed. (See chart for details) This is a 22-year-old female patient presenting to the ED today with STD concern as well as request to have her IUD checked. IUD strings are noted in the cervical OS. Treated prophylaxis for STD. Wet prep noted for bacterial vaginosis. Positive for UTI. Discharged on cephalexin. STD education provided. Follow-up with [facility] or PCP in 1-2 weeks. (MONICA FLEMING APRN) Dragon Disclaimer Dragon Disclaimer This electronic medical record was generated, in whole or in part, using a voice recognition dictation system. (MONICA FLEMING APRN) Departure Departure Impression: Primary Impression: UTI (urinary tract infection) Additional Impressions: Concern about STD in female without diagnosis Bacterial vaginosis Disposition: 01 HOME, SELF-CARE Condition: STABLE Referrals: NO PCP (PCP) follow up with your doctor in 1-2 weeks Patient Instructions: Bacterial Vaginosis, Urinary Tract Infection Additional Instructions: You were evaluated in the emergency room an noted for bacterial vaginosis and urinary tract infection, we treated you for STDs, ensure your partners get treated. Use protection at all times. Complete the rest of the antibiotics for UTI and bacterial vaginosis. Scripts Cephalexin (CEPHALEXIN) 500 Mg Tablet 1 TAB PO BID, #14 TAB Prov: MONICA FLEMING APRN 05/18/18 Metronidazole (FLAGYL) 500 Mg Tablet 1 TAB PO BID, #10 TAB Prov: MONICA FLEMING APRN 05/18/18 Attending Signature Attending Signature I have reviewed the PA/COST CLERK's note and plan of care. I was available for consultation as needed during the patient's visit in the emergency department. I agree with the clinical impression, plan, and disposition. (JUDI JAIN DO) Problem Qualifiers Primary Impression: UTI (urinary tract infection) Urinary tract infection type: site unspecified Hematuria presence: without hematuria Qualified Codes: N39.0 - Urinary tract infection, site not specified MONICA FLEMING DESK DIRECTOR May 18, 2018 19:09 JUDI JAIN DO May 21, 2018 05:10
[2018-05-20 14:16] LABS: GC PROBE Positive (Negative)
== END 2018-05-18 19:10 | disposition home or self-care (01) ==
LOC: ER 18:19
DX: N39.0 Urinary tract infection, site not specified (principal); N76.0 Acute vaginitis; B96.89 Other specified bacterial agents as the cause of diseases classified elsewhere; Z20.2 Contact with and (suspected) exposure to infections with a predominantly sexual mode of transmission
CPT/HCPCS: 81001; 81025; 87086; 87491; 87591; 96372; 99283; J0696; Q0111; Q0144

== ENCOUNTER 2018-08-22 10:12 | Emergency (ER) | payer OTHER ==
[~2018-08-22] VITALS: Ht 170.2 cm; Wt 88.5 kg
[~2018-08-22 10:12] MED LIST changes: +CEPH500T PO; +METR500T PO
[2018-08-22] MEDS ORDERED: IV NORMAL SALINE 1000ML BAG 1,000 ML IV SCH (10:35)
--- NOTE | 2018-08-22 10:42 | PHYS DOC ---
Past Medical History Past Medical History: No Pertinent History, UTI Past Surgical History: No Surgical History Additional Information: 0.5 PPD Alcohol Use: Occasionally Drug Use: Marijuana Adult General Chief Complaint Chief Complaint: ABDOMINAL PAIN HPI HPI Patient is a 23 year old female who presents with complaining of lower abdominal pain. Patient complaining of sudden onset of bilateral lower abdominal pain since yesterday as a constant and sharp pain with radiation to her back that getting worse with movement and sitting up. Patient complaining of nausea yesterday and 2 episodes of rectal bleeding with bright red blood mixed with her stool without anal pain, diarrhea and constipation or history of rectal bleeding. Patient denies urinary symptoms, fever and chills, vaginal bleeding. Patient states she has had vaginal discharge for the last 1 week without having new sexual partner. LMP was July 31 and patient denies and states she is currently has Mirena IUD. Review of Systems Review of Systems Constitutional: Denies fever or chills [] Eyes: Denies change in visual acuity, redness, or eye pain [] HENT: Denies nasal congestion or sore throat [] Respiratory: Denies cough or shortness of breath [] Cardiovascular: No additional information not addressed in HPI [] GI: Reports abdominal pain, nausea, denies vomiting, bloody stools or diarrhea [] : Denies dysuria or hematuria [] Musculoskeletal: Denies back pain or joint pain [] Integument: Denies rash or skin lesions [] Neurologic: Denies headache, focal weakness or sensory changes [] Endocrine: Denies polyuria or polydipsia [] All other systems were reviewed and found to be within normal limits, except as documented in this note. Current Medications Current Medications Current Medications Medications (Trade) Dose Ordered Sig/Kimberly Start Time Stop Time Status Last Admin Dose Admin Ketorolac Tromethamine (Toradol 30mg Vial) 30 mg 1X ONCE 08/22/18 12:00 08/22/18 12:01 DC 08/22/18 12:57 30 MG Sodium Chloride 1,000 ml @ 1,000 mls/hr Q1H 08/22/18 10:35 08/22/18 11:34 DC 08/22/18 10:45 1,000 MLS/HR Allergies Allergies Allergies Coded Allergies Type Severity Reaction Last Updated Verified No Known Drug Allergies 03/31/15 No Physical Exam Physical Exam Constitutional: Well developed, well nourished, mild distress, non-toxic appearance. [] HENT: Normocephalic, atraumatic, oropharynx moist. Eyes: PERRLA, EOMI, conjunctiva normal, no discharge. [] Neck: Normal range of motion, no tenderness, supple, no stridor. [] Cardiovascular:Heart rate regular rhythm, no murmur [] Lungs & Thorax: Bilateral breath sounds clear to auscultation [] Abdomen: Bowel sounds normal, soft, no tenderness, suprapubic guarding, no masses, no pulsatile masses. Vaginal exam with present of crossing watchman showed no external lesion or discharge, mild discharge and vagina without cervical tenderness or bleeding. Rectal exam with present of crossing watchman showed normal external anal without blood in the rectum. Skin: Warm, dry, no erythema, no rash. [] Back: No tenderness, no CVA tenderness. [] Extremities: No tenderness, no cyanosis, no clubbing, ROM intact, no edema. [] Neurologic: Alert and oriented X 3, normal motor function, normal sensory function, no focal deficits noted. [] Psychologic: Affect normal, judgement normal, mood normal. [] Current Patient Data Vital Signs Vital Signs Date Time Temp Pulse Resp B/P (MAP) Pulse Ox O2 Delivery O2 Flow Rate FiO2 08/22/18 10:14 99.0 94 18 121/73 (89) 98 Room Air 99.0 Lab Values Laboratory Tests Test 08/22/18 10:45 08/22/18 11:36 08/22/18 11:46 White Blood Count 9.6 x10^3/uL (4.0-11.0) Red Blood Count 4.45 x10^6/uL (3.50-5.40) Hemoglobin 13.7 g/dL (12.0-15.5) Hematocrit 40.0 % (36.0-47.0) Mean Corpuscular Volume 90 fL (79-100) Mean Corpuscular Hemoglobin 31 pg (25-35) Mean Corpuscular Hemoglobin Concent 34 g/dL (31-37) Red Cell Distribution Width 13.8 % (11.5-14.5) Platelet Count 173 x10^3/uL (140-400) Neutrophils (%) (Auto) 75 % (31-73) H Lymphocytes (%) (Auto) 15 % (24-48) L Monocytes (%) (Auto) 7 % (0-9) Eosinophils (%) (Auto) 3 % (0-3) Basophils (%) (Auto) 1 % (0-3) Neutrophils # (Auto) 7.2 x10^3/uL (1.8-7.7) Lymphocytes # (Auto) 1.4 x10^3/uL (1.0-4.8) Monocytes # (Auto) 0.7 x10^3/uL (0.0-1.1) Eosinophils # (Auto) 0.3 x10^3/uL (0.0-0.7) Basophils # (Auto) 0.1 x10^3/uL (0.0-0.2) Prothrombin Time 13.7 SEC (11.7-14.0) Prothrombin Time INR 1.1 (0.8-1.1) Sodium Level 139 mmol/L (136-145) Potassium Level 4.1 mmol/L (3.5-5.1) Chloride Level 103 mmol/L (98-107) Carbon Dioxide Level 27 mmol/L (21-32) Anion Gap 9 (6-14) Blood Urea Nitrogen 11 mg/dL (7-20) Creatinine 0.6 mg/dL (0.6-1.0) Estimated GFR (Cockcroft-Gault) 149.9 BUN/Creatinine Ratio 18 (6-20) Glucose Level 96 mg/dL (70-99) Calcium Level 8.9 mg/dL (8.5-10.1) Total Bilirubin 0.5 mg/dL (0.2-1.0) Aspartate Amino Transferase (AST) 12 U/L (15-37) L Alanine Aminotransferase (ALT) 20 U/L (14-59) Alkaline Phosphatase 79 U/L (46-116) Total Protein 7.0 g/dL (6.4-8.2) Albumin 3.4 g/dL (3.4-5.0) Albumin/Globulin Ratio 0.9 (1.0-1.7) L Lipase 45 U/L (73-393) L Urine Collection Type Unknown Urine Color Yellow Urine Clarity Clear Urine pH 7.5 Urine Specific [place] 1.025 Urine Protein Negative mg/dL (NEG-TRACE) Urine Glucose (UA) Negative mg/dL (NEG) Urine Ketones (Stick) Negative mg/dL (NEG) Urine Blood Negative (NEG) Urine Nitrite Negative (NEG) Urine Bilirubin Negative (NEG) Urine Urobilinogen Dipstick 1.0 mg/dL (0.2 mg/dL) Urine Leukocyte Esterase Moderate (NEG) Urine RBC 0 /HPF (0-2) Urine WBC Occ /HPF (0-4) Urine Squamous Epithelial Cells Few /LPF Urine Bacteria 0 /HPF (0-FEW) POC Urine HCG, Qualitative Hcg negative (Negative) Laboratory Tests 08/22/18 10:45 Laboratory Tests 08/22/18 10:45 Microbiology 08/22/18 Wet Prep - Final, Complete EKG EKG [] Radiology/Procedures Radiology/Procedures [] Course & Med Decision Making Course & Med Decision Making Pertinent Labs reviewed. (See chart for details) Evaluation of patient in ER showed 23 year old female patient with complaining of lower abdominal pain and vaginal discharge and rectal bleeding. Patient had unremarkable physical exam without rectal bleeding or abnormal labs. Wet months showed bacterial vaginitis. Plan to discharge patient home with diagnosis of bacterial vaginitis. Patient had 1 sexual partner and had treatment for chlamydia and gonorrhea month ago. Patient was informed to follow-up with test results and treatment for STD was not given. I've spoken with the patient and/or caregivers. I've explained the patient's condition, diagnosis and treatment plan based on information available to me at this time. I've answered the patient's and/or caregivers questions and addressed any concerns. The patient and/or caregivers have a good understanding the patient's diagnosis, condition and treatment plan as can be expected at this point. Vital signs have been stabilized. The patient's condition is stable for discharge from the emergency department. The patient will pursue further outpatient evaluation with her primary care provider or other designated consulting physician as outlined in the discharge instructions. Patient and/or caregivers are agreeable to this plan of care and follow-up instructions have been explained in detail. The patient and/or caregivers have received these instructions in written format and expressed understanding of these discharge instructions. The patient and her caregivers are aware that if any significant change in condition or worsening of symptoms should prompt him to immediately return to this of the closest emergency department. If an emergent department is not readily available I would encourage him to call 911. Stephany Disclaimer Stephany Disclaimer This electronic medical record was generated, in whole or in part, using a voice recognition dictation system. Departure Departure Impression: Primary Impression: Lower abdominal pain Additional Impression: Bacterial vaginosis Disposition: HOME, SELF-CARE (1899) Condition: IMPROVED Referrals: NO PCP (PCP) Patient Instructions: Pelvic Pain, Female, Vaginitis, [id number] Additional Instructions: Drink plenty of liquids Follow-up with your primary care physician in 3-5 days Return to ER if not getting better Scripts Tramadol Hcl (ULTRAM) 50 Mg Tablet 50 MG PO Q6HRS PRN for PAIN, #14 TAB 0 Refills Prov: HERMINIO HERNANDEZ MD 08/22/18 Metronidazole (FLAGYL) 500 Mg Tablet 1 TAB PO BID, #14 TAB Prov: HERMINIO HERNANDEZ MD 08/22/18 Problem Qualifiers HERMINIO HERNANDEZ MD Aug 22, 2018 10:42
[2018-08-22 11:01] LABS: BASO # 0.1 x10^3/uL (0.0-0.2); BASO % 1 % (0-3); EOS # 0.3 x10^3/uL (0.0-0.7); EOS % 3 % (0-3); HEMOGLOBIN 13.7 g/dL (12.0-15.5); LYMPH # 1.4 x10^3/uL (1.0-4.8); LYMPH % 15 % (24-48); MEAN CORPUSCULAR HEMOGLOBIN 31 pg (25-35); MEAN CORPUSCULAR HGB CONC 34 g/dL (31-37); MEAN CORPUSCULAR VOLUME 90 fL (79-100); MONO # 0.7 x10^3/uL (0.0-1.1); MONO % 7 % (0-9); NEUT # 7.2 x10^3/uL (1.8-7.7); NEUT % 75 % (31-73); PLATELET COUNT 173 x10^3/uL (140-400); RED BLOOD COUNT 4.45 x10^6/uL (3.50-5.40); RED CELL DISTRIBUTION WIDTH 13.8 % (11.5-14.5); WHITE BLOOD COUNT 9.6 x10^3/uL (4.0-11.0)
[2018-08-22 11:11] LABS: PROTHROMBIN TIME PATIENT 13.7 SEC (11.7-14.0)
[2018-08-22 11:17] LABS: CALCIUM 8.9 mg/dL (8.5-10.1); CREATININE 0.6 mg/dL (0.6-1.0); GFR 149.9; POTASSIUM 4.1 mmol/L (3.5-5.1)
[2018-08-22 11:32] LABS: ALBUMIN 3.4 g/dL (3.4-5.0); ALBUMIN/GLOBULIN RATIO 0.9 (1.0-1.7); TOTAL BILIRUBIN 0.5 mg/dL (0.2-1.0)
[2018-08-22 11:52] LABS: BILIRUBIN,URINE NEGATIVE (NEG); CLARITY,URINE CLEAR; COLOR,URINE YELLOW; NITRITE,URINE NEGATIVE (NEG); PH,URINE 7.5; PROTEIN,URINE NEGATIVE (NEG-TRACE)
[2018-08-22] MEDS ORDERED: KETOROLAC 30 MG/ML VIAL. IV ONE (12:00)
[2018-08-22 12:08] LABS: BACTERIA,URINE 0 /HPF (0-FEW); RBC,URINE 0 /HPF (0-2); SQUAMOUS EPITHELIAL CELL,UR FEW /LPF; WBC,URINE OCC /HPF (0-4)
[2018-08-22 12:23] VITALS: BP 106/65
[2018-08-22] MEDS ORDERED: METR500T PO (13:11)
[2018-08-22] MEDS ORDERED: TRAM-48 PO (13:11)
[2018-08-25 18:09] LABS: GC PROBE Positive (Negative)
== END 2018-08-22 13:19 | disposition home or self-care (01) ==
LOC: ER 10:12
DX: N76.0 Acute vaginitis (principal); B96.89 Other specified bacterial agents as the cause of diseases classified elsewhere; R10.31 Right lower quadrant pain; R10.32 Left lower quadrant pain; R11.0 Nausea; F17.200 Nicotine dependence, unspecified, uncomplicated
CPT/HCPCS: 36415; 80053; 81001; 81025; 83690; 85025; 85610; 87086; 87491; 87591; 96374; 99284; J1885; J7030; Q0111

== ENCOUNTER 2018-11-22 12:33 | Emergency (ER) | payer OTHER ==
[~2018-11-22] VITALS: Ht 170.2 cm; Wt 95.3 kg
[~2018-11-22 12:33] MED LIST changes: +TRAM-48 PO
[2018-11-22 13:21] LABS: BILIRUBIN,URINE NEGATIVE (NEG); CLARITY,URINE CLEAR; COLOR,URINE YELLOW; NITRITE,URINE NEGATIVE (NEG); PH,URINE 7.5; PROTEIN,URINE NEGATIVE (NEG-TRACE)
[2018-11-22 13:26] LABS: SQUAMOUS EPITHELIAL CELL,UR MOD /LPF
[2018-11-22 13:27] LABS: BACTERIA,URINE MODERATE /HPF (0-FEW); BARBITURATES NEG (NEG); BENZODIAZEPINES NEG (NEG); CANNABINOIDS NEG (NEG); COCAINE NEG (NEG); METHADONE NEG (NEG); OPIATES NEG (NEG); PHENCYCLIDINE NEG (NEG)
[2018-11-22 13:29] LABS: AMPHETAMINE/METHAMPHETAMINE POS (NEG); RBC,URINE 0 /HPF (0-2)
[2018-11-22 13:30] VITALS: BP 131/72
[2018-11-22 13:53] LABS: BASO # 0.1 x10^3/uL (0.0-0.2); BASO % 1 % (0-3); EOS # 0.3 x10^3/uL (0.0-0.7); EOS % 3 % (0-3); HEMATOCRIT 42.5 % (36.0-47.0); HEMOGLOBIN 14.4 g/dL (12.0-15.5); LYMPH # 1.7 x10^3/uL (1.0-4.8); LYMPH % 17 % (24-48); MEAN CORPUSCULAR HEMOGLOBIN 31 pg (25-35); MEAN CORPUSCULAR HGB CONC 34 g/dL (31-37); MEAN CORPUSCULAR VOLUME 90 fL (79-100); MONO # 0.6 x10^3/uL (0.0-1.1); MONO % 6 % (0-9); NEUT # 7.5 x10^3/uL (1.8-7.7); NEUT % 74 % (31-73); PLATELET COUNT 196 x10^3/uL (140-400); RED BLOOD COUNT 4.72 x10^6/uL (3.50-5.40); RED CELL DISTRIBUTION WIDTH 13.9 % (11.5-14.5); WHITE BLOOD COUNT 10.2 x10^3/uL (4.0-11.0)
[2018-11-22 14:02] LABS: CALCIUM 8.8 mg/dL (8.5-10.1); CREATININE 0.7 mg/dL (0.6-1.0); GFR 125.5; POTASSIUM 3.8 mmol/L (3.5-5.1)
[2018-11-22 14:08] LABS: ALBUMIN 3.7 g/dL (3.4-5.0); TOTAL BILIRUBIN 0.3 mg/dL (0.2-1.0); TOTAL PROTEIN 7.4 g/dL (6.4-8.2)
--- NOTE | 2018-11-22 14:21 | RAD ---
PELVIS COMPLETE DATE: 11/22/2018 1:09 PM HISTORY: Pelvic pain. LMP 10/28/2018. COMPARISON: None. TECHNIQUE: Complete pelvic ultrasound was performed. FINDINGS: The uterus measures 10.9 x 4.0 x 5.5 cm. The myometrium demonstrates normal echogenicity without focal lesion. The endometrial echo measures 9 mm. The right ovary measures 3.3 x 2.8 x 3.6 cm. The left ovary measures 3.4 x 2.7 x 2.4 cm. The bilateral ovaries are physiologic in appearance. Normal vascularity in the bilateral ovaries by color Doppler examination. Trace pelvic free fluid, likely physiologic. IMPRESSION: Physiologic appearance of the uterus and ovaries. Electronically signed by: Kendall Fernandez MD (11/22/2018 2:18 PM) [facility]
[2018-11-22] MEDS ORDERED: METR500T PO (14:36)
--- NOTE | 2018-11-22 14:36 | PHYS DOC ---
Past Medical History Past Medical History: No Pertinent History, UTI (MONICA FLEMING APRN) Past Surgical History: No Surgical History (MONICA FLEMING APRN) Alcohol Use: Occasionally Drug Use: Marijuana Social History Narrative: FORMER MARIJUANA & PILLS INCLUDING ECTASY (MONICA FLEMING APRN) Attending Signature I have participated in the care of this patient and I have reviewed and agree with all pertinent clinical information above including history, exam, and recommendations. (KEN BAKER MD) Adult General Chief Complaint Chief Complaint: ABDOMINAL PAIN HPI HPI Patient is a 23 year old female with no significant medical history who presents to the ED today complaining of 5 out of 10 bilateral pelvic pain intermittently for 2 weeks. Patient states this pain began as soon as they took out her Mirena. Patient denies any chance she is . She is also complaining of vaginal discharge for 2 weeks. Denies any concerns for STDs. Denies any urinary symptoms. (MONICA FLEMING APRN) Review of Systems Review of Systems Constitutional: Denies fever or chills [] Eyes: Denies change in visual acuity, redness, or eye pain [] HENT: Denies nasal congestion or sore throat [] Respiratory: Denies cough or shortness of breath [] Cardiovascular: No additional information not addressed in HPI [] GI: Reports pelvic pain with vaginal discharge, denies nausea, vomiting, bloody stools or diarrhea [] : Denies dysuria or hematuria [] Musculoskeletal: Denies back pain or joint pain [] Integument: Denies rash or skin lesions [] Neurologic: Denies headache, focal weakness or sensory changes [] All other systems were reviewed and found to be within normal limits, except as documented in this note. (MONICA FLEMING APRN) Allergies Allergies Allergies Coded Allergies Type Severity Reaction Last Updated Verified No Known Drug Allergies 03/31/15 No (KEN BAKER MD) Physical Exam Physical Exam Constitutional: Well developed, well nourished, no acute distress, non-toxic appearance. [] HENT: Normocephalic, atraumatic, bilateral external ears normal, oropharynx moist, no oral exudates, nose normal. [] Eyes: PERRLA, EOMI, conjunctiva normal, no discharge. [] Neck: Normal range of motion, no tenderness, supple, no stridor. [] Cardiovascular:Heart rate regular rhythm, no murmur [] Lungs & Thorax: Bilateral breath sounds clear to auscultation [] Abdomen: Bowel sounds normal, soft, no tenderness, no masses, no pulsatile masses. [] Pelvic exam External pelvic appears normal, cervix is visualized, closed, no CMT, no adnexal tenderness, small amount of white discharge in the vaginal vault. Skin: Warm, dry, no erythema, no rash. [] Back: No tenderness, no CVA tenderness. [] Extremities: No tenderness, no cyanosis, no clubbing, ROM intact, no edema. [] Neurologic: Alert and oriented X 3, normal motor function, normal sensory function, no focal deficits noted. [] Psychologic: Affect normal, judgement normal, mood normal. [] (MONICA FLEMING APRN) Current Patient Data Vital Signs Vital Signs Date Time Temp Pulse Resp B/P (MAP) Pulse Ox O2 Delivery O2 Flow Rate FiO2 11/22/18 13:30 87 131/72 (91) 11/22/18 12:46 98.0 16 100 Room Air 98.0 (KEN BAKER MD) Lab Values Laboratory Tests Test 11/22/18 12:50 11/22/18 13:16 11/22/18 13:20 Urine Collection Type Unknown Urine Color Yellow Urine Clarity Clear Urine pH 7.5 Urine Specific [place] 1.020 Urine Protein Negative mg/dL (NEG-TRACE) Urine Glucose (UA) 100 mg/dL (NEG) Urine Ketones (Stick) Negative mg/dL (NEG) Urine Blood Negative (NEG) Urine Nitrite Negative (NEG) Urine Bilirubin Negative (NEG) Urine Urobilinogen Dipstick 1.0 mg/dL (0.2 mg/dL) Urine Leukocyte Esterase Trace (NEG) Urine RBC 0 /HPF (0-2) Urine WBC 11-20 /HPF (0-4) Urine Squamous Epithelial Cells Mod /LPF Urine Bacteria Moderate /HPF (0-FEW) Urine Mucus Slight /LPF Urine Opiates Screen Neg (NEG) Urine Methadone Screen Neg (NEG) Urine Barbiturates Neg (NEG) Urine Phencyclidine Screen Neg (NEG) Urine Amphetamine/Methamphetamine Pos (NEG) Urine Benzodiazepines Screen Neg (NEG) Urine Cocaine Screen Neg (NEG) Urine Cannabinoids Screen Neg (NEG) Urine Ethyl Alcohol Neg (NEG) POC Urine HCG, Qualitative Hcg negative (Negative) White Blood Count 10.2 x10^3/uL (4.0-11.0) Red Blood Count 4.72 x10^6/uL (3.50-5.40) Hemoglobin 14.4 g/dL (12.0-15.5) Hematocrit 42.5 % (36.0-47.0) Mean Corpuscular Volume 90 fL (79-100) Mean Corpuscular Hemoglobin 31 pg (25-35) Mean Corpuscular Hemoglobin Concent 34 g/dL (31-37) Red Cell Distribution Width 13.9 % (11.5-14.5) Platelet Count 196 x10^3/uL (140-400) Neutrophils (%) (Auto) 74 % (31-73) H Lymphocytes (%) (Auto) 17 % (24-48) L Monocytes (%) (Auto) 6 % (0-9) Eosinophils (%) (Auto) 3 % (0-3) Basophils (%) (Auto) 1 % (0-3) Neutrophils # (Auto) 7.5 x10^3/uL (1.8-7.7) Lymphocytes # (Auto) 1.7 x10^3/uL (1.0-4.8) Monocytes # (Auto) 0.6 x10^3/uL (0.0-1.1) Eosinophils # (Auto) 0.3 x10^3/uL (0.0-0.7) Basophils # (Auto) 0.1 x10^3/uL (0.0-0.2) Sodium Level 139 mmol/L (136-145) Potassium Level 3.8 mmol/L (3.5-5.1) Chloride Level 103 mmol/L (98-107) Carbon Dioxide Level 26 mmol/L (21-32) Anion Gap 10 (6-14) Blood Urea Nitrogen 8 mg/dL (7-20) Creatinine 0.7 mg/dL (0.6-1.0) Estimated GFR (Cockcroft-Gault) 125.5 BUN/Creatinine Ratio 11 (6-20) Glucose Level 128 mg/dL (70-99) H Calcium Level 8.8 mg/dL (8.5-10.1) Total Bilirubin 0.3 mg/dL (0.2-1.0) Aspartate Amino Transferase (AST) 15 U/L (15-37) Alanine Aminotransferase (ALT) 17 U/L (14-59) Alkaline Phosphatase 82 U/L (46-116) Total Protein 7.4 g/dL (6.4-8.2) Albumin 3.7 g/dL (3.4-5.0) Albumin/Globulin Ratio 1.0 (1.0-1.7) Lipase 47 U/L (73-393) L Ethyl Alcohol Level < 10 mg/dL (0-10) Laboratory Tests 11/22/18 13:20 Laboratory Tests 11/22/18 13:20 Microbiology 11/22/18 Wet Prep - Final, Complete (KEN BAKER MD) EKG EKG [] (MONICA FLEMING APRN) Radiology/Procedures Radiology/Procedures []PROCEDURE: PELVIS COMPLETE PELVIS COMPLETE DATE: 11/22/2018 1:09 PM HISTORY: Pelvic pain. LMP 10/28/2018. COMPARISON: None. TECHNIQUE: Complete pelvic ultrasound was performed. FINDINGS: The uterus measures 10.9 x 4.0 x 5.5 cm. The myometrium demonstrates normal echogenicity without focal lesion. The endometrial echo measures 9 mm. The right ovary measures 3.3 x 2.8 x 3.6 cm. The left ovary measures 3.4 x 2.7 x 2.4 cm. The bilateral ovaries are physiologic in appearance. Normal vascularity in the bilateral ovaries by color Doppler examination. Trace pelvic free fluid, likely physiologic. IMPRESSION: Physiologic appearance of the uterus and ovaries. Electronically signed by: Krystyna Fernandez MD (11/22/2018 2:18 PM) [facility] DICTATED and SIGNED BY: KRYSTYNA FERNANDEZ MD DATE: 11/22/18 1418 (MONICA FLEMING APRN) Course & Med Decision Making Course & Med Decision Making Pertinent Labs and Imaging studies reviewed. (See chart for details) This is a 23-year-old female patient who presents to the ED today complaining of pelvic pain with vaginal discharge for 2 weeks. Negative urine hCG, CBC, CMP-no acute findings, pelvic ultrasound negative for any acute findings, wet prep noted for BV. Discharge and Flagyl. Follow-up with ELECTRICAL TIMING DEVICE CALIBRATOR in one week. (MONICA FLEMING APRN) Dragon Disclaimer Dragon Disclaimer This electronic medical record was generated, in whole or in part, using a voice recognition dictation system. (MONICA FLEMING APRN) Departure Departure Impression: Primary Impression: Bacterial vaginosis Additional Impression: Pelvic pain Disposition: 01 HOME, SELF-CARE Condition: STABLE Referrals: NO PCP (PCP) KHLOE ORDOÑEZ MD Follow-up with your ELECTRICAL TIMING DEVICE CALIBRATOR in 1-2 weeks Patient Instructions: Bacterial Vaginosis, [id number] Additional Instructions: You were evaluated in the emergency room for pelvic pain and noted to have bacterial vaginosis, we put you on antibiotics for this, ensure you complete them. Follow-up with your doctor in 1-2 weeks. Scripts Metronidazole (FLAGYL) 500 Mg Tablet 1 TAB PO BID, #14 TAB Prov: MONICA FLEMING APRN 11/22/18 Problem Qualifiers MONICA FLEMING APRN Nov 22, 2018 14:36 KEN BAKER MD Nov 23, 2018 06:11
[2018-11-24 19:21] LABS: GC PROBE Negative (Negative)
== END 2018-11-22 14:39 | disposition home or self-care (01) ==
LOC: ER 12:33
DX: N76.0 Acute vaginitis (principal); B96.89 Other specified bacterial agents as the cause of diseases classified elsewhere
CPT/HCPCS: 36415; 76856; 80053; 80307; 81001; 81025; 83690; 85025; 87086; 87186; 87491; 87591; 99285; G0480; Q0111; 99284

== ENCOUNTER → 2019-03-24 | Outpatient (CLI) | payer OTHER ==
--- NOTE | 2019-03-24 13:29 | RAD ---
Clinical indications: Uterine size/date discrepancy. COMPARISON: None available for this . Findings: A single intrauterine fetus is seen in cephalic position. heart rate is 141 beats per minute. BPD is 5.35 cm which equals 22 weeks 2 days. HC is 20.01 cm which equals 22 weeks 1 day. AC is 16.77 cm which equals 21 weeks 5 days. FL is 3.57 cm which equals 21 weeks 2 days. Average gestational age by ultrasound is 21 weeks 6 days +/- 12 days with an EDC of July 29, 2019. Estimated weight is 1 lbs and 0 oz. A four-chamber heart and three-vessel cord are identified. stomach and urinary bladder are identified. kidneys are unremarkable. Cord insertion site is unremarkable. The intracranial structures and spine are morphologically normal in appearance. The ventricular trigone measurement is 8 mm. Cisterna magna measurement is 5.0 mm. Four extremities are identified. Amniotic fluid-grossly normal in amount. Cervical length is 4.8 cm. A grade 0 posterior placenta is seen. No placenta previa and no placenta abruptio is identified. The maternal ovaries are not visualized. Impression: Single IUP with gestational age of 21 weeks 6 days. Therefore, EDC by ultrasound is July 29, 2019. LMP is October 30, 2018 which corresponds to an EDC of August 06, 2019. Therefore, the age is 8 days greater than the clinical gestational age. Electronically signed by: Jaison Jay MD (03/24/2019 1:26 PM) [facility]
== END | disposition home or self-care (01) ==
LOC: US 08:45
PROVIDERS: ATTEND Obstetrics & Gynecology
DX: O26.842 Uterine size-date discrepancy, second trimester (principal); Z3A.21 21 weeks gestation of pregnancy
CPT/HCPCS: 76805

== ENCOUNTER 2019-08-06 19:19 | Observation (INO) | payer OTHER ==
[2019-08-06] MEDS ORDERED: ACETAMINOPHEN 325 MG TABLET. PO PRN (19:30)
[2019-08-06] MEDS ORDERED: diphenhydrAMINE HCL 25 MG CAPSULE PO PRN (19:30)
[2019-08-06] MEDS ORDERED: fentaNYL PF VIAL 100 MCG/2 ML VIAL IVP PRN (19:30)
[2019-08-06] MEDS ORDERED: IBUPROFEN 400 MG TABLET. PO PRN (19:30)
[2019-08-06] MEDS ORDERED: 0.9 % SODIUM CHLORIDE 10 ML DISP.SYRIN. IV PRN (19:30)
[2019-08-06] MEDS ORDERED: MAG HYDROX/ALUMINUM HYD/SIMETH 30 ML ORAL.SUSP PO PRN (19:30)
[2019-08-06] MEDS ORDERED: ONDANSETRON PF 4 MG/2 ML VIAL. IVP PRN (19:30)
[2019-08-06] MEDS ORDERED: TERBUTALINE 1 MG/ML VIAL. SQ PRN (19:30)
[2019-08-06] MEDS ORDERED: IV RINGERS,LACTATED 1000ML 1,000 ML IV PRN (19:30)
[2019-08-06] MEDS ORDERED: OXYTOCIN 30 UNIT/500 ML PREMIX 500 ML IV PRN (19:30)
[2019-08-06] MEDS ORDERED: LIDOCAINE 1% PF 30 ML VIAL. INJ PRN (19:30)
--- NOTE | 2019-08-06 19:37 | NUR ---
pt arrived to unit with expectation of induction tonight. Patient was initial told By Dr. Hernandez to come from office 3pm this afternoon. When patient had not arrived by 6 DDr. Mary informed Nurses that he will now induce her at 6am tomorrow. When patient arrived tonight when she was informed of change of plan, patient was upset and chose to leave AMA and return in AM for induction. Physician and RN concerns voiced due to possible health concerns for , patient states she is fine with taking the chance. AMA paperwork signed and patient was discharged from computer
[2019-08-07] MEDS ORDERED: OXYTOCIN 30 UNIT/500 ML PREMIX 500 ML IV PRN (05:00)
== END 2019-08-06 19:43 | disposition left against medical advice (07) ==
LOC: 3 SO LND 19:19
PROVIDERS: ADMIT Obstetrics & Gynecology; ATTEND Obstetrics & Gynecology
DX: Z34.83 Encounter for supervision of other normal pregnancy, third trimester (principal); Z3A.00 Weeks of gestation of pregnancy not specified
CPT/HCPCS: G0379

== ENCOUNTER 2019-08-07 07:24 | Inpatient (IN) | payer OTHER ==
[~2019-08-07] VITALS: Ht 167.6 cm; Wt 108.0 kg
[2019-08-07] MEDS ORDERED: 0.9 % SODIUM CHLORIDE 10 ML DISP.SYRIN. IV PRN ×2 (07:30→13:00)
[2019-08-07] MEDS ORDERED: IBUPROFEN 400 MG TABLET. PO PRN ×2 (07:30→13:00)
[2019-08-07] MEDS ORDERED: TERBUTALINE 1 MG/ML VIAL. SQ PRN (07:30)
[2019-08-07] MEDS ORDERED: LIDOCAINE 1% PF 30 ML VIAL. INJ PRN (07:30)
[2019-08-07] MEDS ORDERED: OXYTOCIN 30 UNIT/500 ML PREMIX 500 ML IV PRN ×3 (07:30→13:00)
[2019-08-07 08:06] LABS: BASO % 0 % (0-3); EOS # 0.3 x10^3/uL (0.0-0.7); EOS % 2 % (0-3); HEMATOCRIT 33.1 % (36.0-47.0); HEMOGLOBIN 11.5 g/dL (12.0-15.5); LYMPH # 1.9 x10^3/uL (1.0-4.8); LYMPH % 16 % (24-48); MEAN CORPUSCULAR HEMOGLOBIN 30 pg (25-35); MEAN CORPUSCULAR HGB CONC 35 g/dL (31-37); MEAN CORPUSCULAR VOLUME 88 fL (79-100); MONO # 0.7 x10^3/uL (0.0-1.1); MONO % 6 % (0-9); NEUT # 8.9 x10^3/uL (1.8-7.7); NEUT % 76 % (31-73); PLATELET COUNT 161 x10^3/uL (140-400); RED BLOOD COUNT 3.78 x10^6/uL (3.50-5.40); RED CELL DISTRIBUTION WIDTH 13.9 % (11.5-14.5); WHITE BLOOD COUNT 11.7 x10^3/uL (4.0-11.0)
[2019-08-07 08:08] LABS: BILIRUBIN,URINE NEGATIVE (NEG); CLARITY,URINE CLOUDY; COLOR,URINE YELLOW; NITRITE,URINE NEGATIVE (NEG); PROTEIN,URINE 30 mg/dL (NEG-TRACE)
[2019-08-07] MEDS: IV RINGERS,LACTATED 1000ML 1,000 ML IV SCH ×2 (08:32→10:31)
--- NOTE | 2019-08-07 08:56 | PDOC1 ---
OB - History Hx of Present Care: Limited Care Ultrasounds: Normal mid trimester US Obstetrical Complications: Other (Oligohydramnios) Medical Complications: None Past Family/Social History * Past Medical, Surgical, Family and Obstetric Histories reviewed from chart. Blood Type: O- Rubella: Immune RPR/VDRL: Negative GBS Status: Negative HBsAG: Negative OB - Chief Complaint & HPI Date of Admission: Date of Admission: Aug 07, 2019 at 07:24 Chief Complaint/History : 4 Para: 3 EGA: 40 Reason for admission: induction of labor (oligohydramnios) Admission Nurse Assessment Rev: Yes OB - Admission Exam Physical Exam HEENT: Normal Heart: Regular Rate Lungs: Clear Abdomen: Gravid, Non tender, Soft Extremities: Edema Reflexes: Normal Cervical Dilatation: 5cm Effacement: 75% Station: -2 Membranes: Intact Heart Rate: Normal Accelerations: Accelerations Present Decelerations: No decelerations Contractions on Admission: None Text A: 40 wks IUP Oligohydramnios P: Admit IOL pitocin. AIDA MONROE Jr, MD Aug 07, 2019 08:55
[2019-08-07] MEDS ORDERED: miSOPROStol 200 MCG TABLET ONE ×2 (09:18→10:00)
[2019-08-07] MEDS ORDERED: L&D EPIDURAL 50 ML SYRINGE. ONE (10:00)
[2019-08-07] MEDS ORDERED: ROPIVacaine 0.2% PF 10 ML VIAL. ONE ×2 (10:00→10:09)
[2019-08-07] MEDS ORDERED: L&D EPIDURAL SYRINGE 50 ML ONE (10:09)
[2019-08-07] MEDS ORDERED: IV RINGERS,LACTATED 1000ML 1,000 ML IV SCH (10:40)
[2019-08-07] MEDS ORDERED: ROPIVacaine 0.2% PF 10 ML VIAL. EPID PRN (10:45)
[2019-08-07] MEDS ORDERED: ePHEDrine PF IN SALINE 50 MG/10 ML SYRINGE. IV PRN (10:45)
[2019-08-07] MEDS ORDERED: NALOXONE 0.4 MG/ML VIAL. IV PRN (10:45)
[2019-08-07] MEDS ORDERED: L&D EPIDURAL SYRINGE 50 ML EPID PRN (10:45)
--- NOTE | 2019-08-07 12:55 | PDOC ---
VAGINAL DELIVERY DATE DATE: 08/07/19 TIME: 12:55 : 4 Para: 4 EGA: 40 VAGINAL DELIVERY: VTX VACCUM ASSISTED: No PLACENTA: Spontaneous 9/9 SEX: Male WEIGHT Weight [ pending] Nuchal Cord: No Amniotic Fluid: Clear PAIN: Epidural EPISIOTOMY: No EXTENSION: No EBL 300 ml COMPLICATIONS none CONDITION pt. stable Signs of Intrauterine Infectio: None Shoulder Dystocia: No AIDA MONROE Jr, MD Aug 07, 2019 12:55
[2019-08-07] MEDS ORDERED: SIMETHICONE 80 MG TAB.CHEW PO PRN (13:00)
[2019-08-07] MEDS ORDERED: TDaP (Adacel) per PROTOCOL. MC PRN (13:00)
[2019-08-07] MEDS ORDERED: BENZOCAINE 20% TOPICAL AEROSOL SPRAY 57GM CAN. TP PRN (13:00)
[2019-08-07] MEDS ORDERED: diphenhydrAMINE HCL 25 MG CAPSULE PO PRN (13:00)
[2019-08-07] MEDS ORDERED: MAG HYDROX/ALUMINUM HYD/SIMETH 30 ML ORAL.SUSP PO PRN (13:00)
[2019-08-07] MEDS ORDERED: MMR per PROTOCOL. MC PRN (13:00)
[2019-08-07] MEDS ORDERED: oxyCODONE/APAP 5/325 1 TAB TABLET PO PRN (13:00)
[2019-08-07] MEDS ORDERED: PHENYLEPH/MINERAL OIL/PETROLAT RECTAL OINTMENT TUBE. RC PRN (13:00)
[2019-08-07] MEDS ORDERED: ACETAMINOPHEN 325 MG TABLET. PO PRN (13:00)
[2019-08-07] MEDS ORDERED: DOCUSATE SODIUM 100 MG CAPSULE. PO PRN (13:00)
[2019-08-07] MEDS ORDERED: MAGNESIUM HYDROXIDE 2,400 MG/30 ML ORAL.SUSP. PO PRN (13:00)
[2019-08-07] MEDS ORDERED: HYDROCORTISONE 1% TOPICAL OINTMENT 30GM TUBE. TP PRN (13:00)
[2019-08-07] MEDS ORDERED: ZOLPIDEM 5 MG TABLET. PO PRN (13:00)
--- NOTE | 2019-08-07 16:12 | NUR ---
SS received notification that will be adopted. SS spoke with sample sawyer, Heaven Zaldivar, ; fax [phone]. Adoptive parent, Swati Warren. Mother's sample sawyer faxed DPOA paperwork over for notary and requested release of information for mother and infant. SS met with mother. DPOA singed and notarized. Mother completed release of information for mother and infant. SS faxed DPOA paperwork and releases of information to mother's sample sawyer. Copies placed in mother and infant chart.
[2019-08-07 17:05] VITALS: BP 130/80
--- NOTE | 2019-08-07 18:00 | NUR ---
pt left AMA with SO
[2019-08-08] MEDS ORDERED: FERROUS SULFATE 325 MG TABLET. PO SCH (08:00)
[2019-08-08] MEDS ORDERED: MULTIVITAMIN with MINERAL TABLET. PO SCH (09:00)
== END 2019-08-07 18:00 | disposition left against medical advice (07) | DRG 807 ==
LOC: 3 SO LND 07:24 → 3 NORTH 16:09
PROVIDERS: ADMIT Obstetrics & Gynecology; ATTEND Obstetrics & Gynecology
PROC: 10E0XZZ Delivery of Products of Conception, External Approach (ICD-10-PCS; principal; 2019-08-07)
PROC: 3E0R3BZ Introduction of Anesthetic Agent into Spinal Canal, Percutaneous Approach (ICD-10-PCS; 2019-08-07)
PROC: 00HU33Z Insertion of Infusion Device into Spinal Canal, Percutaneous Approach (ICD-10-PCS; 2019-08-07)
DX: O41.03X0 Oligohydramnios, third trimester, not applicable or unspecified (principal); Z37.0 Single live birth; Z3A.40 40 weeks gestation of pregnancy
CPT/HCPCS: 36415; 81003; 85025; 86592; 86850; 86900; 86901; 96361; 96365; 99285; J2590; J2795; J3010; J7120; G0378